=== PATIENT | female | born 1965 | race Caucasian/White ===

== ENCOUNTER → 2018-06-15 08:05 | Outpatient (CLI) | payer OTHER, SELFPAY ==
--- NOTE | 2018-06-14 16:30 | EMB_PTH ---
PATIENT: CUONG RESENDIZ LOC: [facility] U#:[id number] AGE/SX: 60/F ROOM: RE06/15/[address]: Dr. Jose Alfredo Sneed MD : 1965 BED: DIS: SPEC #: [id number] RECD: 06/15/18 08:18 STATUS: TRINI KHUSHBOO #: [id number] LYRIC: 06/14/18 16:[address]: Jose Alfredo Sneed DEPT: SURGICAL PATHOLOGY RECD BY: Stan Valadez Tissues: Endometrium, NOS Procedures: Surgery Specimen Level IV HEADER OPERATION: Endometrial biopsy PRE-OP DIAGNOSIS: Menorrhagia TISSUE SUBMITTED: Endometrial biopsy MICROSCOPIC DIAGNOSIS Endometrial biopsy: Disordered proliferative endometrium. Mild chronic endometritis. SJ:carlos 06/16/18 MICROSCOPIC DESCRIPTION Slides are reviewed. GROSS DESCRIPTION Received in fixative is one container labeled with the patient's name and designated EM biopsy. The specimen consists of multiple fragments of hemorrhagic soft tissue that in aggregate measure 3 x 2.5 x 0.2 cm. The specimen is totally submitted in one cassette. / SJ:carlos 06/15/18 TC:5 CPT: 49635
[2018-06-23 13:32] LABS: HPV APTIMA, High Risk Negative (Negative)
[2018-07-09 15:31] LABS: HPV Reflexed? YES, CHARGE PATIENT
== END ==
PROVIDERS: Visit Provider Obstetrics & Gynecology
DX: Z12.4 Encounter for screening for malignant neoplasm of cervix (principal)
CPT/HCPCS: 87624; 88175; 88305; G0145

== ENCOUNTER → 2018-07-10 16:41 | Outpatient (CLI) | payer OTHER, SELFPAY ==
[2018-07-10 17:39] LABS: Follicle Stimulating Hormone 2.9 mIU/mL
[2018-07-12 11:31] LABS: Cancer Antigen 125 37.8 U/mL (0.0-38.1)
== END ==
PROVIDERS: Visit Provider Obstetrics & Gynecology
DX: N83.209 Unspecified ovarian cyst, unspecified side (principal); N92.0 Excessive and frequent menstruation with regular cycle
CPT/HCPCS: 36415; 83001; 86304

== ENCOUNTER 2018-08-10 05:17 | Day surgery (SDC) | payer OTHER, SELFPAY ==
[2018-07-27 12:26] VITALS: BP 119/73; PULSE 48; RESP 16; TEMP 36.7; O2SAT 98; BMI 36.4
[2018-07-27 13:22] LABS: Hematocrit 37.7 % (37-47); Hemoglobin 11.8 g/dl (12.0-15.0); Mean Corp Hgb Conc 31.3 g/gl (32-36); Mean Corpuscular Hgb 28.4 pg (27.0-32.0); Mean Corpuscular Volume 90.8 fL (81-99); Mean Platelet Vol. 9.9 fl (6.2-12.0); Platelet Count 376 K/mm3 (150-450); RBC Distribution Width CV 13.1 % (11.6-14.6); RBC Distribution Width SD 42.6 fl (35.1-43.9); Red Blood Count 4.15 M/mm3 (4.2-5.4); White Blood Count 5.8 K/mm3 (4.4-11.0)
[2018-07-27 13:23] LABS: Scan Indicated on CBC? Y/N NO
[2018-07-27 13:25] LABS: Prothrombin Time (Protime)PT. 12.8 SECONDS (11.7-14.9)
[2018-07-27 13:26] LABS: Partial Thromboplast Time 26.4 Seconds (24.1-36.2)
[2018-07-27 13:43] LABS: ALB/GLOB Ratio 0.8 RATIO (0.9-2.4); AST(SGOT) 38 U/L (15-37); Alanine Aminotransfer ALT/SGPT 41 U/L (13-56); Albumin, Serum 3.5 g/dL (3.2-5.0); Alkaline Phosphatase 171 U/L (45-117); Anion Gap 6 (5-15); BUN 16 mg/dL (7-18); BUN/Creat Ratio 13.6 RATIO (10-20); Calcium,Total 8.7 mg/dL (8.5-10.1); Chloride 104 mmol/L (98-107); Creatinine, Serum 1.18 mg/dL (0.55-1.02); EST Glomerular Filtration Rate 51 mL/min (>60); Est Glom Filt Rate - Afr Amer 62 mL/min (>60); Estimated Creatinine Clearance 42.56 ml/min; Globulin 4.6 g/dL (2.2-4.2); Glucose 86 mg/dL (74-106); Potassium 4.7 mmol/L (3.5-5.1); Protein, Total 8.1 g/dL (6.4-8.2); Sodium Level 136 mmol/L (136-145)
--- NOTE | 2018-08-09 20:06 | PCM.HP.BLA ---
History and Physical Date of Admission: 08/10/18 Surgical History and Physical Alvina Parker, a 53 year old female 3 0 2 0 3, presents for LABH/LSO on August 10, 2018 at 11:15. -- Complex Left Ovarian Cyst; Menorrhagia; Mildly Elevated CA-125 -- Alvina has been having occassional left lower abdominal pain. She has a hx of ovarian cysts. Pain is not attributable to any given point in her cycle. Pt has been bleeding since 06-08-18 with clots. Heavy bleeding which began weeks ago. Alvina claims it started suddenly It occurs all the time. It is located in the vagina. Severity is moderate and not improving; Septated simple left ovary about 4 cm.; Additional comments are: CA-125 =37.; Additional comments are: EMBx benign. MEDICATIONS HISTORY: Patient is also takin. amlodipine 5 mg tablet, daily 2. metoprolol tartrate 50 mg tablet, One pill by mouth twice a day ALLERGIES: NKA, Lisinopril, Anxiety, Prednisone and Anxiety Infections - chicken pox- as a child Illnesses - CP, HTN, Irreg Heart Rhythn, Asthma Accidents - no injuries of consequence Hospitalizations - Childbirth and see surgery Heart Cath, anemia; Review of Systems: GENERAL - Denies fever, or chills SKIN - Denies skin changes EYES - Denies visual changes EARS - Denies difficulty hearing NOSE - Denies nasal congestion or bleeding MOUTH - Denies sore throat or difficulty swallowing NECK - Denies pain or swelling RESPIRATORY - Denies shortness of breath or wheezing CARDIOVASCULAR - Denies palpitations or chest pain GASTROINTESTINAL - Denies nausea, vomiting, diarrhea, constipation GENITOURINARY - Denies dysuria, frequency of urination, incontinence of urine MUSCULOSKELETAL - Denies joint or muscle pain NEUROLOGICAL - Denies localized numbness or weakness PSYCHIATRIC - Denies depression or anxiety ENDOCRINE - Denies heat or cold intolerance, weight loss or gain HEMATO-IMMUNOLOGIC - Denies excesive bleeding with cuts SOCIAL HISTORY: Alcohol Use - denies drinking Smoking - used to smoke but quit Diet - no special diet Lifestyle - moderate stress lifestyle and Exercise - minimal Seat Belt Use - always Employer - [employer] Job Description - [employer] Part-time Illicit Drug Use - denies use of street drugs Sexual Activity - and [employer]IVE [employer] Hours Worked - 15 hrs wk Spouse-Sig Other Name - Levon Spouse-Sig Other Occupation - [employer] Children Name(s) - Kristina Sherman Jonathan Control - Prior Tubal FAMILY HISTORY: Family history of Diabetes, Heart Dz. MENSTRUAL HISTORY: LMP Known?- DefiniteAmount/Duration - 14 days, Regularity - Regular, Frequency - monthly days, LMP - 07/04/18, Age Onset Menarche - 15 PAST PREGNANCIES: Total Pregnancies - 5; Full Term Pregnancies - 3; Premature - 0; Abortions, Induced - 0; Abortions, Spontaneous - 2; Ectopics - 0; Multiple Births - 0; Living Children - 3 SURGICAL HISTORY: 1. 2002 Cholecystectomy ; Praneeth Callahan - 2. Heart Cath ; - 3. RSO 07/2005- Dr Sneed ; - 4. Hernia repairs x 2 ; - 5. Heart Valve Repair @ 5yo ; - 6. BTO ; - PHYSICAL EXAMINATION BP- 112/72 Sitting, Right arm, regular cuff Weight- 192.00 lbs Height- 61.00 inch BMI:36.35 CONSTITUTIONAL - NAD, well nourished, and well developed ABDOMEN - Without hepatosplenomegaly, distention, masses, rebound, or guarding; normal bowel sounds; no hernias and Midline incision scar present symphasis to 4 cm above umbilicus NEUROLOGICAL - Cranial nerves II-XII grossly intact PSYCHIATRIC - A and O to time, place, person, mood and affect DETAILED PELVIC EXAM External Genitial Vagina - non-tender without lesions Urethra/Urethral Meatus - non-tender Bladder - non-tender Vagina - vaginal rodriguez are pink and moist without loss of rugae and no evidence of atropy and blood in vagina Cervix - without cervical motion tenderness and has normal size and features without evident lesions and cervix pulls to within 2-3 cm of introitus with tenaculum Uterus - multiparous size 6 cm & wt 75-125 g Adnexa - clear without massess or tenderness ASSESSMENT: 1. Ovarian Cyst Nos 2. Menorrhagia PLAN BY DIAGNOSIS: 1. Menorrhagia and Ovarian Cyst Nos EM OK. CA-125 in very high normal range and FSH shows she is not menopausal. Discussed expectant option vs proceeding with surgery and pt desires proceeding with LAVH/LSO. Discussed RBAs and all questions answered. She has arch aneurysm. Many surgeries in past without difficulty.
[2018-08-10] VITALS (12 sets, daily range): BP systolic 91–125; BP diastolic 62–73; PULSE 45–97; RESP 16–18; TEMP 35.9–37.3; O2SAT 96–100; BMI 36.4; BMI 38.7
--- NOTE | 2018-08-10 | HYST_PTH ---
PATIENT: CUONG RESENDIZ LOC: [facility] U#:[id number] AGE/SX: 53/F ROOM: RE08/10/[address]: Dr. Jose Alfredo Sneed MD : 1965 BED: DIS: 08/11/2018 SPEC #: [id number] RECD: 08/10/18 10:52 STATUS: TRINI CUELLO #: [id number] LYRIC: 08/10/18 00:[address]: Jose Alfredo Sneed DEPT: SURGICAL PATHOLOGY RECD BY: Stan Valadez ENTERED: 08/10/18 10:52 SP TYPE: HYSTERECT OTHR DR: Dr. Tree Limon MD Tissues: Uterus, NOS Procedures: Surgery Specimen Level V HEADER OPERATION: Hysterectomy, lap-assisted vaginal, LSO, ERAS PRE-OP DIAGNOSIS: Ovarian cyst, menorrhagia TISSUE SUBMITTED: Uterus, cervix, left fallopian tube and ovary MICROSCOPIC DIAGNOSIS Uterus, cervix, left fallopian tube and ovary and portion right fallopian tube: Cervix - mild chronic cystic cervicitis. Endometrium - proliferative endometrium with focal cystic changes. Myometrium - adenomyosis. Left ovary - physiologic follicular cyst. 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 Left paratubal cyst. SJ:carlos 08/11/18 MICROSCOPIC DESCRIPTION Slides are reviewed. GROSS DESCRIPTION Received in fixative is one container labeled with the patient's name and designated uterus. The specimen consists of a uterus with attached cervix measuring 10.5 x 6 x 5 cm and weighing 119 gm. The ectocervix is unremarkable and the cervical os is oval in contour. Attached is a portion of right fallopian tube that measures 3.5 cm in length and 0.6 cm in average diameter. The endocervical canal measures 3 cm in length and is grossly unremarkable. The triangular endometrial cavity measures 4.5 x 3.5 cm. The endometrium is light garcia, velvety and glistening and measures up to 0.2 cm in thickness. The myometrium measures 2 cm in average thickness and is free of mass lesions. Present free in the container is a cystic ovary measuring 4 x 3.8 x 3 cm and weighing 22 gm. The external surface is smooth and glistening. The cyst contains clear fluid. The inner cyst wall is also smooth and glistening. No papillary projections or excrescences are seen. The cyst wall ranges in thickness from 0.1 to 0.2 cm. Also present free in the container is a portion of fallopian tube in two fragments measuring 5 cm in length and 0.5 cm in average diameter. The fimbriated end appears normal in appearance. Two paratubal cysts containing clear fluid are present and range in size from 0.8 to 1 cm in greatest dimension. Power Bender Operator sections are submitted in ten cassettes as follows: 1 - anterior cervix, 2 - posterior cervix, 3 & 4 - anterior uterine wall, 5 & 6 - posterior uterine wall, 7 & 8 - left cystic ovary, 9 - right fallopian tube, 10 - left fallopian tube and paratubal cysts. / AM:carlos 08/10/18 TC:5 CPT: 97493
[2018-08-10] MEDS: Gabapentin 600 MG Tablet PO (05:43)
[2018-08-10] MEDS: Acetaminophen 500 MG Tablet 1000 MG PO (05:43)
[2018-08-10] MEDS: Scopolamine 1mg/72hr Patch 1 PATCH TRANSDERM. (05:44)
[2018-08-10 07:01] LABS: Bedside Glucose 82 mg/dL (70-110)
[2018-08-10] MEDS: Ropivacaine 0.5% 30 ML Vial (08:00)
--- NOTE | 2018-08-10 09:27 | PCM.OPRPT ---
Report of Operation Date of Procedure: 08/10/18 Pre-Operative Diagnosis: Left Ovarian Cyst and Pain, Menorrhagia, Elevated CA 125 Post-Operative Diagnosis: Left Ovarian Cyst and Pain, Menorrhagia, Elevated CA 125 Surgery/Procedure Performed:: Laparoscopic-Assisted Vaginal Hysterectomy, Left Salpingo-Oophorectomy Description of Surgical Findings:: 8 cm uterus with cervix that protruded to within 2 cm of the introitus. 5 cm cystic left ovary. Absent right tube and ovary. Adhesions of omentum to right anterior abdominal wall. maintenance chief: Ana Maria Ames maintenance chief: Maria Isabel Sandhu Type of Anesthesia:: General Anesthesiologist: Alonzo Sneed Specimen's removed: Uterus and left fallopian tube and ovary Drains: Prieto to straight drain Estimated Blood Loss (mL): 200 cc Fluids Replaced: Crystalloid Description of Procedure: Surgeon: Jose Alfredo Sneed MD, [facility] Indications: This is a 53-year-old who is been having problems with irregular menses. Recent CT scan showed a cystic ovary and this was confirmed on ultrasound. She is also been having some problems with left lower quadrant pain. CA 125 was elevated to approximately 37. Conservative measures have not been helpful. Given this the patient desires that we proceed the above procedure. She has been counseled regarding the risk and indications of this procedure including the possibility of bleeding, infection, and injury to surrounding structures such as bowel bladder. All questions were answered. Procedure: Patient was taken to the operating room where after induction of general anesthesia she was placed in the dorsal lithotomy position and prepped and draped in the usual sterile fashion. A Prieto catheter was placed. Anterior cervix was grasped with a tenaculum and anterior cervix circumscribed with cautery on a setting of 35 W coagulation. Anterior vaginal mucosa was undermined and a 4 x 4 raytec sponge was placed to identify the peritoneal reflection of the bladder intraperitoneally. Conn cannula was placed and attention was turned towards the laparoscopic portion of the procedure. Approximately 20 cc of half percent ropivacaine was injected in the left mid quadrant approximately 10 cm lateral to the umbilicus, suprapubically, and then about 3 cm below the umbilicus. A 5 mm bladeless trocar was introduced in the left port and intraperitoneal placement confirmed. CO2 insufflation was completed and, under direct visualization, a 5 mm bladeless trocar was introduced suprapubically. A 5 mm bladed trocar was introduced 2 cm subumbilical under direct visualization. Bladed trocar was used because of mesh being present. Enseal was used to cauterize the infundibulopelvic ligaments to the level of the round ligament on the left; the Raytec placed in the vagina was visualized. Scissors was used to open the peritoneum and under direct visualization a narrow [place] was placed vaginally; CO2 gas was stopped and attention turned toward the vaginal hysterectomy portion of the procedure. The posterior aspect of the cervix was circumscribed with a knife and posterior peritoneum easily entered. Progressive bites were taken on either side of the uterine cervix and each pedicle ligated with 0 Vicryl suture. Superior pedicles were ligated ?2 with 0 Vicryl suture and sidewall pedicles were examined and oversewn where necessary with [id number] 0 Vicryl suture to achieve hemostasis. Posterior vaginal cuff was oversewn with running locked 0 Vicryl suture. Hemostasis was noted and peritoneum was closed in a pursestring fashion incorporating superior pedicles into the stitch. Vaginal cuff was then closed front to back with interrupted [id number] 0 Vicryl suture. Hemostasis was noted. Attention was turned toward the laparoscopic portion of the procedure. CO2 insufflation was completed and pedicles were examined and noted to be hemostatic. Laparoscopic instruments with as much CO2 gas as possible was removed and skin incisions were closed with interrupted 4-0 Monocryl suture. Steri-Strips and OpSite was placed across the incisions. Patient tolerated the procedure well was taken to recovery room in satisfactory condition; sponge instrument and needle counts were all reportedly correct. Estimated blood loss for the case was 200 cc. Cefotan 2 g IV was given prior to beginning the operative procedure. There were no apparent complications of the surgery. Grafts/Implants Used: None - Complications None - Admit VTE Documentation VTE Present on Admission: Yes VTE Mechan Device Prophylaxis: SCD's VTE Pharm Prophylaxis ordered?: Yes
--- NOTE | 2018-08-10 09:35 | OP.PCM_ITS ---
Report of Operation Date of Procedure: 08/10/18 Pre-Operative Diagnosis: Left Ovarian Cyst and Pain, Menorrhagia, Elevated CA 125 Post-Operative Diagnosis: Left Ovarian Cyst and Pain, Menorrhagia, Elevated CA 125 Surgery/Procedure Performed:: Laparoscopic-Assisted Vaginal Hysterectomy, Left Salpingo-Oophorectomy Description of Surgical Findings:: 8 cm uterus with cervix that protruded to within 2 cm of the introitus. 5 cm cystic left ovary. Absent right tube and ovary. Adhesions of omentum to right anterior abdominal wall. remote sensing technician: Ana Maria Ames remote sensing technician: Maria Isabel Sandhu Type of Anesthesia:: General Anesthesiologist: Alonzo Sneed Specimen's removed: Uterus and left fallopian tube and ovary Drains: Prieto to straight drain Estimated Blood Loss (mL): 200 cc Fluids Replaced: Crystalloid Description of Procedure: Surgeon: Jose Alfredo Sneed MD, [facility] Indications: This is a 53-year-old who is been having problems with irregular menses. Recent CT scan showed a cystic ovary and this was confirmed on ultrasound. She is also been having some problems with left lower quadrant pain. CA 125 was elevated to approximately 37. Conservative measures have not been helpful. Given this the patient desires that we proceed the above procedure. She has been counseled regarding the risk and indications of this procedure including the possibility of bleeding, infection, and injury to surrounding structures such as bowel bladder. All questions were answered. Procedure: Patient was taken to the operating room where after induction of general anesthesia she was placed in the dorsal lithotomy position and prepped and draped in the usual sterile fashion. A Prieto catheter was placed. Anterior cervix was grasped with a tenaculum and anterior cervix circumscribed with cautery on a setting of 35 W coagulation. Anterior vaginal mucosa was undermined and a 4 x 4 raytec sponge was placed to identify the peritoneal reflection of the bladder intraperitoneally. Conn cannula was placed and a ttention was turned towards the laparoscopic portion of the procedure. Approximately 20 cc of half percent ropivacaine was injected in the left mid quadrant approximately 10 cm lateral to the umbilicus, suprapubically, and then about 3 cm below the umbilicus. A 5 mm bladeless trocar was introduced in the left port and intraperitoneal placement confirmed. CO2 insufflation was completed and, under direct visualization, a 5 mm bladeless trocar was introduced suprapubically. A 5 mm bladed trocar was introduced 2 cm subumbilical under direct visualization. Bladed trocar was used because of mesh being present. Enseal was used to cauterize the infundibulopelvic ligaments to the level of the round ligament on the left; the Raytec placed in the vagina was visualized. Scissors was used to open the peritoneum and under direct visualization a narrow [place] was placed vaginally; CO2 gas was stopped and attention turned toward the vaginal hysterectomy portion of the procedure. The posterior aspect of the cervix was circumscribed with a knife and posterior peritoneum easily entered. Progressive bites were taken on either side of the uterine cervix and each pedicle ligated with 0 Vicryl suture. Superior pedicles were ligated ?2 with 0 Vicryl suture and sidewall pedicles were examined and oversewn where necessary with [id number] 0 Vicryl suture to achieve hemostasis. Posterior vaginal cuff was oversewn with running locked 0 Vicryl suture. Hemostasis was noted and peritoneum was closed in a pursestring fashion incorporating superior pedicles into the stitch. Vaginal cuff was then closed front to back with interrupted [id number] 0 Vicryl suture. Hemostasis was noted. Attention was turned toward the laparoscopic portion of the procedure. CO2 insufflation was completed and pedicles were examined and noted to be hemostatic. Laparoscopic instruments with as much CO2 gas as possible was removed and skin incisions were closed with interrupted 4-0 Monocryl suture. Steri-Strips and OpSite was placed across the incisions. Patient tolerated the procedure well was taken to recovery room in satisfactory condition; sponge instrument and needle counts were all reportedly correct. Estimated blood loss for the case was 200 cc. Cefotan 2 g IV was given prior to beginning the operative procedure. There were no apparent complications of the surgery. Grafts/Implants Used: None - Complications None - Admit VTE Documentation VTE Present on Admission: Yes VTE Mechan Device Prophylaxis: SCD's VTE Pharm Prophylaxis ordered?: Yes
[2018-08-10] MEDS: Ondansetron 4 MG/2 ML Vial IV (09:37)
--- NOTE | 2018-08-10 09:37 | DCINST_ITS ---
Discharge Diet: No Restrictions Discharge Activity: Return to Normal Activity, May Not Drive - while taking narcotic pain medications., May Shower May resume sexual activity in: 6-8 weeks Call your doctor if your incision/area has: Continuous Slow Oozing, Sudden Increased Bleeding, Increased Pain/ Swelling, Increased Redness, Foul Smelling Discharge Call your doctor if you observe: Fever of 101 or Higher, Inability to urinate, Inability to have a bowel movement, Using more than one pad per hour Allergies/Adverse Reactions: Allergies lisinopril Allergy (Verified 07/27/18 12:19) Other TONGUE AND LIPS NUMB prednisone Allergy (Verified 07/27/18 12:20) Other ANXIETY ATTACK Medications to take at Discharge Amlodipine [Norvasc] 5 mg PO DAILY 07/27/18 Esomeprazole Mag Trihydrate [Nexium] 20 mg PO PRN PRN 07/27/18 Metoprolol Tartrate [Lopressor (Beta Michelle)] 50 mg PO BID 07/27/18 Docusate Sodium [Colace] 100 mg PO BID PRN PRN #60 cap 08/10/18 Oxycodone [Oxyir] 5 mg PO Q6H PRN PRN 7 Days #20 tab 08/10/18 The following prescriptions were given: Oxycodone [Oxyir] 5 mg PO Q6H PRN PRN 7 Days #20 tab PRN Reason: Severe Pain (-06/21) Docusate Sodium [Colace] 100 mg PO BID PRN PRN #60 cap PRN Reason: Constipation Primary Care Physician: Tree Limon MD [Primary Care Provider] - Test Results: Test results from this visit will be discussed in further detail at your follow- up appointment, if applicable. Please Follow Up With: Jose Alfredo Sneed MD When: 2-3 weeks
[2018-08-10] MEDS: Dextrose 5%-Lactated Ringers 1,000 ML 150 ML IV ×2 (10:39→17:25)
[2018-08-10] MEDS: Ketorolac 30 MG/ML Syringe IV ×2 (13:05→17:25)
[2018-08-10] MEDS: Estrogens,Conj. 0.625 MG Tablet PO (14:15)
[2018-08-10] MEDS: Enoxaparin 30 MG/0.3 ML Syringe SC (17:25)
[2018-08-11] MEDS: Ketorolac 30 MG/ML Syringe IV (00:06)
[2018-08-11] MEDS: 0.9% NaCl Peripheral Flush Adult/Peds IV (00:06)
[2018-08-11 02:55] VITALS: BP 118/71; PULSE 73; RESP 18; TEMP 36.6; O2SAT 99
[2018-08-11] MEDS: Ketorolac 10 MG Tablet PO (05:46)
[2018-08-11 06:27] LABS: Hematocrit 33.9 % (37-47); Hemoglobin 10.5 g/dl (12.0-15.0); Mean Corpuscular Hgb 27.9 pg (27.0-32.0); Mean Corpuscular Volume 90.2 fL (81-99); Mean Platelet Vol. 9.4 fl (6.2-12.0); Platelet Count 308 K/mm3 (150-450); RBC Distribution Width CV 13.6 % (11.6-14.6); RBC Distribution Width SD 44.6 fl (35.1-43.9); Red Blood Count 3.76 M/mm3 (4.2-5.4); White Blood Count 8.5 K/mm3 (4.4-11.0)
[2018-08-11 06:34] LABS: Scan Indicated on CBC? Y/N NO
[2018-08-11 06:39] LABS: Creatinine, Serum 1.52 mg/dL (0.55-1.02); EST Glomerular Filtration Rate 38 mL/min (>60); Est Glom Filt Rate - Afr Amer 46 mL/min (>60); Estimated Creatinine Clearance 33.04 ml/min
[2018-08-11 07:43] VITALS: BP 109/68; PULSE 77; RESP 18; TEMP 36.8; O2SAT 97
--- NOTE | 2018-08-11 08:02 | PCM.PN.OB ---
Subjective: Patient without complaints. Pain well controlled. Minimal vaginal bleeding. Tolerating diet well. Positive flatus. Ready to go home. - Physical Exam Vital Signs Temp Pulse Resp BP Pulse Ox 98.3 F 77 18 109/68 97 08/11/18 07:43 08/11/18 07:43 08/11/18 07:43 08/11/18 07:43 08/11/18 07:43 Oxygen Flow Rate (L/min) 6 Oxygen Delivery Method Room Air Weight: 205 lb Body Mass Index (BMI) 38.7 Intake and Output for Last 24 Hours 08/09/18 08/10/18 08/11/18 23:59 23:59 23:59 Intake Total 1673 / 1673 2138 / 2138 Output Total 1415 / 1415 1750 / 1750 Balance 258 / 258 388 / 388 Laboratory Tests Past 24 Hrs 08/11/18 08/11/18 06:02 06:02 WBC 8.5 RBC 3.76 L Hgb 10.5 L Hct 33.9 L MCV 90.2 MCH 27.9 MCHC 31.0 L RDW 13.6 RDW Differential 44.6 H Plt Count 308 MPV 9.4 Creatinine 1.52 H Estim Creat Clear Calc 33.04 Est GFR (MDRD) Af Amer 46 L Est GFR (MDRD) Non-Af 38 L Wounds are clean, dry, intact. Good urine output. Hemoglobin and creatinine okay. Toradol discontinued. Medical Necessity - Tobacco Use Smoking Status: Never smoker Assessment/Plan Doing well postoperative day #1 status post laparoscopic assisted vaginal hysterectomy and left salpingo-oophorectomy. Will release to home with routine instructions.
[2018-08-11 08:43] VITALS: BP 109/68; PULSE 77
[2018-08-11] MEDS: Estrogens,Conj. 0.625 MG Tablet PO (08:43)
[2018-08-11] MEDS: Metoprolol Tartrate 50 MG Tablet PO (08:43)
[2018-08-11] MEDS: amLODIPine 5 MG Tablet PO (08:43)
[2018-08-11 09:48] VITALS: BP 109/68; PULSE 77; RESP 18; TEMP 36.8; O2SAT 97
--- OUTSIDE RECORDS SUMMARY | 2018-10-05 05:59 | XMS RPT_ITS ---
:1965 Author Organization OHIP Support Name Relationship Address Phone ASTRID OWEN Unavailable [address] + [place] [address] WESTHOLSCH Unavailable [id number] + [place] [address] WESTHOLSCH Unavailable [address] + [place] [address] OWEN RESENDIZ Unavailable [address] Unavailable [place], [place] [phone] DOBBS, SUSANNE Unavailable [address] + [place], [place] [phone] NOT GIVEN Unavailable Unavailable Unavailable JOEPO Unavailable [address] + [place] [address] YE DOBBS Unavailable [address] [place] [address] OWEN RESENDIZ Unavailable [address] Unavailable [place], [place] [phone] DOBBS, SUSANNE Unavailable [address] + [place], [place] [phone] NOT GIVEN Unavailable Unavailable Unavailable OWEN RESENDIZ Unavailable [address] Unavailable [place] [phone] DOBBS, SUSANNE Unavailable [address] + [place], [place] [phone] NOT GIVEN Unavailable Unavailable Unavailable OWEN RESENDIZ Unavailable [address] Unavailable [place] [id number] DOBBS, SUSANNE Unavailable [address] + [place], [place] [phone] NOT GIVEN Unavailable Unavailable Unavailable OWEN RESENDIZ Unavailable [address] Unavailable [place] [phone] DOBBS, SUSANNE Unavailable [address] + [place], [place] [phone] NOT GIVEN Unavailable Unavailable Unavailable Care Team Providers Name Role Phone JOSE RAMÍREZ Admitting Unavailable MEAGHAN, JOSE L Attending Unavailable MEAGHAN, JOSE L Primary Care Unavailable JOSE RAMÍREZ L Admitting Unavailable JOSE RAMÍREZ L Attending Unavailable MEAGHANJOSE L Primary Care Unavailable [place], [place] Consulting Unavailable PROVIDER, UNKNOWN Consulting Unavailable ESE VIRGEN DO Admitting Unavailable ESE VIRGEN DO Attending Unavailable DIDESE ACUNA DO Primary Care Unavailable [place], SONA Consulting Unavailable [place], SONA Referring Unavailable PROVIDER, UNKNOWN Consulting Unavailable ESE VIRGEN DO Admitting Unavailable ESE VIRGEN DO Attending Unavailable DIDESE ACUNA DO Primary Care Unavailable [place], SONA Consulting Unavailable [place], SONA Referring Unavailable PROVIDER, UNKNOWN Consulting Unavailable JOSE RAMÍREZ L Admitting Unavailable JOSE RAMÍREZ L Attending Unavailable JOSE RAMÍREZ L Primary Care Unavailable [place], SONA Consulting Unavailable PROVIDER, UNKNOWN Consulting Unavailable Graeme Cisneros Attending Unavailable Nedra, Graeme Attending Unavailable Graeme Cisneros Attending Unavailable Tree Limon Primary Care Unavailable Graeme Cisneros Referring Unavailable PROBLEMS PROBLEMS DATE TYPE CONDITION / CODE ATTENDING STATUS SOURCE 08/11/2018 Unknown G89.18 - Other acute Graeme Cisneros postprocedural pain Community / G89.18(ICD-10) Hospital Repository 07/10/2018 Unknown N83.209 - Graeme Cisneros Active [facility] Unspecified ovarian Community cyst, unspecified Hospital side / Repository N83.209(ICD-10) 07/10/2018 Unknown N92.0 - Excessive Graeme Cisneros and frequent [facility] menstruation with [facility] regular cycle / Repository N92.0(ICD-10) PROCEDURES PROCEDURES No Procedure Records FoundRESULTS RESULTS CBC-COMPLETE BLOOD CNT Collected: 08/11/2018 Status: F Source: [place] NO DIFF 6:02 AM [facility] REPOSITORY TYPE CODE TESTS RESULT OUT OF RANGE REFERENCE UNITS LAB L100.1000 4.4-11.0 K/mm3 Normal WBC 8.5 LAB L100.1200 4.2-5.4 M/mm3 Low RBC 3.76 LAB L100.1300 12.0-15.0 g/dl Low HGB 10.5 LAB L100.1400 37-47 % Low HCT 33.9 LAB L100.1500 81-99 fL Normal MCV 90.2 LAB L100.1600 27.0-32.0 pg Normal MCH 27.9 LAB L100.1700 32-36 g/gl Low MCHC 31.0 LAB L100.1810 11.6-14.6 % Normal RDW CV 13.6 LAB L100.1820 35.1-43.9 fl High RDW SD 44.6 LAB L100.1900 150-450 K/mm3 Normal PLT 308 LAB L100.2000 6.2-12.0 fl Normal MPV 9.4 Performed By: #### L100.0500 #### [facility] [address] [place], [address] SERUM CREATININE AND Collected: 08/11/2018 Status: F Source: [place] GFR 6:[address] [facility] REPOSITORY TYPE CODE TESTS RESULT OUT OF RANGE REFERENCE UNITS LAB L501.1100 0.55-1.02 mg/dL High 1.52 CREAT,SERUM Result Comment: The validity of the calculated GFR AND GFRAA in patients over 70 years has not been determined. Clinical correlation is essential. LAB L501.1110 >60 mL/min Low EST GFR 38 Result Comment: Non- GFR Calc LAB L501.1115 >60 mL/min Low EST GFR - AA 46 Result Comment: GFR Calc LAB L501.1255 ml/min Normal Estimated CRCL 33.04 Performed By: #### L501.1105 #### [facility] [address] [place], [address] DISCHARGE INSTRUCTION Observed: 08/10/2018 Status: F Source: [place] 9:[address] [facility] REPOSITORY [facility] Medical Records Department [address] [place] [address] Instructions for Home/Discharge Instructions 08/10/18 0936 MR#: [id number] Acct: [id number] Name: CUONG RESENDIZ Rep #: [id number] : 1965 53 From: Graeme Cisneros MD PCP: Tree Limon MD Status: REG [facility] Discharge Diet: No Restrictions Discharge Activity: Return to Normal Activity, May Not Drive - while taking narcotic pain medications., May Shower May resume sexual activity in: 6-8 weeks Call your doctor if your incision/area has: Continuous Slow Oozing, Sudden Increased Bleeding, Increased Pain/ Swelling, Increased Redness, Foul Smelling Discharge Call your doctor if you observe: Fever of 101 or Higher, Inability to urinate, Inability to have a bowel movement, Using more than one pad per hour Allergies/Adverse Reactions: Allergies lisinopril Allergy (Verified 07/27/18 12:19) Other TONGUE AND LIPS NUMB prednisone Allergy (Verified 07/27/18 12:20) Other ANXIETY ATTACK Medications to take at Discharge Amlodipine [Norvasc] 5 mg PO DAILY 07/27/18 Esomeprazole Mag Trihydrate [Nexium] 20 mg PO PRN PRN 07/27/18 Metoprolol Tartrate [Lopressor (Beta Michelle)] 50 mg PO BID 07/27/18 Docusate Sodium [Colace] 100 mg PO BID PRN PRN #60 cap 08/10/18 Oxycodone [Oxyir] 5 mg PO Q6H PRN PRN 7 Days #20 tab 08/10/18 The following prescriptions were given: Oxycodone [Oxyir] 5 mg PO Q6H PRN PRN 7 Days #20 tab PRN Reason: Severe Pain (-06/21) Docusate Sodium [Colace] 100 mg PO BID PRN PRN #60 cap PRN Reason: Constipation Primary Care Physician: Tree Limon MD [Primary Care Provider] - Test Results: Test results from this visit will be discussed in further detail at your follow-up appointment, if applicable. Please Follow Up With: Graeme Cisneros MD When: 2-3 weeks 08/10/1837 <Electronically signed by Graeme Cisneros MD> Date Graeme Cisneros MD CC: Tree Limon MD OPERATIVE REPORT Observed: 08/10/2018 Status: F Source: [place] 9:[address] [facility] REPOSITORY [facility] Medical Records Department [address] [place] [address] Operative Report 08/10/18926 MR#: [id number] Acct: [id number] Name: CUONG RESENDIZ Rep #: [id number] : 1965 53 From: Graeme Cisneros MD PCP: Tree Limon MD Status: REG [facility] Y Location: [place] [address] Report of Operation Date of Procedure: 08/10/18 Pre-Operative Diagnosis: Left Ovarian Cyst and Pain, Menorrhagia, Elevated CA 125 Post-Operative Diagnosis: Left Ovarian Cyst and Pain, Menorrhagia, Elevated CA 125 Surgery/Procedure Performed:: Laparoscopic-Assisted Vaginal Hysterectomy, Left Salpingo-Oophorectomy Description of Surgical Findings:: 8 cm uterus with cervix that protruded to within 2 cm of the introitus. 5 cm cystic left ovary. Absent right tube and ovary. Adhesions of omentum to right anterior abdominal wall. bundle packer: Ana Maria Ames bundle packer: Maria Isabel Sandhu Type of Anesthesia:: General Anesthesiologist: Alonzo Cisneros Specimen's removed: Uterus and left fallopian tube and ovary Drains: Prieto to straight drain Estimated Blood Loss (mL): 200 cc Fluids Replaced: Crystalloid Description of Procedure: Surgeon: Graeme Cisneros MD, [facility] OG Indications: This is a 53-year-old who is been having problems with irregular menses. Recent CT scan showed a cystic ovary and this was confirmed on ultrasound. She is also been having some problems with left lower quadrant pain. CA 125 was elevated to approximately 37. Conservative measures have not been helpful. Given this the patient desires that we proceed the above procedure. She has been counseled regarding the risk and indications of this procedure including the possibility of bleeding, infection, and injury to surrounding structures such as bowel bladder. All questions were answered. Procedure: Patient was taken to the operating room where after induction of general anesthesia she was placed in the dorsal lithotomy position and prepped and draped in the usual sterile fashion. A Prieto catheter was placed. Anterior cervix was grasped with a tenaculum and anterior cervix circumscribed with cautery on a setting of 35 W coagulation. Anterior vaginal mucosa was undermined and a 4 x 4 raytec sponge was placed to identify the peritoneal reflection of the bladder intraperitoneally. Conn cannula was placed and attention was turned towards the laparoscopic portion of the procedure. Approximately 20 cc of half percent ropivacaine was injected in the left mid quadrant approximately 10 cm lateral to the umbilicus, suprapubically, and then about 3 cm below the umbilicus. A 5 mm bladeless trocar was introduced in the left port and intraperitoneal placement confirmed. CO2 insufflation was completed and, under direct visualization, a 5 mm bladeless trocar was introduced suprapubically. A 5 mm bladed trocar was introduced 2 cm subumbilical under direct visualization. Bladed trocar was used because of mesh being present. Enseal was used to cauterize the infundibulopelvic ligaments to the level of the round ligament on the left; the Raytec placed in the vagina was visualized. Scissors was used to open the peritoneum and under direct visualization a narrow Gypsy was placed vaginally; CO2 gas was stopped and attention turned toward the vaginal hysterectomy portion of the procedure. The posterior aspect of the cervix was circumscribed with a knife and posterior peritoneum easily entered. Progressive bites were taken on either side of the uterine cervix and each pedicle ligated with 0 Vicryl suture. Superior pedicles were ligated 2 with 0 Vicryl suture and sidewall pedicles were examined and oversewn where necessary with vizrry-lg-[id number] 0 Vicryl suture to achieve hemostasis. Posterior vaginal cuff was oversewn with running locked 0 Vicryl suture. Hemostasis was noted and peritoneum was closed in a pursestring fashion incorporating superior pedicles into the stitch. Vaginal cuff was then closed front to back with interrupted [id number] 0 Vicryl suture. Hemostasis was noted. Attention was turned toward the laparoscopic portion of the procedure. CO2 insufflation was completed and pedicles were examined and noted to be hemostatic. Laparoscopic instruments with as much CO2 gas as possible was removed and skin incisions were closed with interrupted 4-0 Monocryl suture. Steri-Strips and OpSite was placed across the incisions. Patient tolerated the procedure well was taken to recovery room in satisfactory condition; sponge instrument and needle counts were all reportedly correct. Estimated blood loss for the case was 200 cc. Cefotan 2 g IV was given prior to beginning the operative procedure. There were no apparent complications of the surgery. Grafts/Implants Used: None - Complications None - Admit VTE Documentation VTE Present on Admission: Yes VTE Mechan Device Prophylaxis: SCD's VTE Pharm Prophylaxis ordered?: Yes 08/10/18 0936 <Electronically signed by Graeme Cisneros MD> Date Graeme Cisneros MD CC: Graeme Cisneros MD; Tree Limon MD Signed BEDSIDE GLUCOSE Collected: 08/10/2018 Status: F Source: [place] 5:[address] [facility] REPOSITORY TYPE CODE TESTS RESULT OUT OF RANGE REFERENCE UNITS LAB L501.080 70-110 mg/dL Normal BEDSIDE GLU 82 Result Comment: MANAGEMENT OF PATIENT CARE PER NURSING PROTOCOL Performed By: #### L501.080 #### [facility] Point of Care [address] [place] [address] HYSTERECTOMY SPECIMEN Observed: 08/10/2018 Status: F Source: [place] 12:[address] [facility] REPOSITORY Patient: CUONG RESENDIZ : 1965 (53/F) Acct Num: [id number] Phys: Nedra DAWIKNS,Graeme Unit Num: [id number] Loc: [facility] Specimen: [id number] Received: 08/10/181051 Spec Type: HYSTERECT TISSUES 1 TISSUES: Uterus, NOS GROSS DESCRIPTION Received in fixative is one container labeled with the patient's name and designated uterus. The specimen consists of a uterus with attached cervix measuring 10.5 x 6 x 5 cm and weighing 119 gm. The ectocervix is unremarkable and the cervical os is oval in contour. Attached is a portion of right fallopian tube that measures 3.5 cm in length and 0.6 cm in average diameter. The endocervical canal measures 3 cm in length and is grossly unremarkable. The triangular endometrial cavity measures 4.5 x 3.5 cm. The endometrium is light garcia, velvety and glistening and measures up to 0.2 cm in thickness. The myometrium measures 2 cm in average thickness and is free of mass lesions. Present free in the container is a cystic ovary measuring 4 x 3.8 x 3 cm and weighing 22 gm. The external surface is smooth and glistening. The cyst contains clear fluid. The inner cyst wall is also smooth and glistening. No papillary projections or excrescences are seen. The cyst wall ranges in thickness from 0.1 to 0.2 cm. Also present free in the container is a portion of fallopian tube in two fragments measuring 5 cm in length and 0.5 cm in average diameter. The fimbriated end appears normal in appearance. Two paratubal cysts containing clear fluid are present and range in size from 0.8 to 1 cm in greatest dimension. Golf Coach sections are submitted in ten cassettes as follows: 1 - anterior cervix, 2 - posterior cervix, 3 AND 4 - anterior uterine wall, 5 AND 6 - posterior uterine wall, 7 AND 8 - left cystic ovary , 9 - right fallopian tube, 10 - left fallopian tube and paratubal cysts. / AM: carlos 08/10/18 TC:5 CPT: 08097 HEADER OPERATION: Hysterectomy, lap-assisted vaginal, LSO, ERAS PRE-OP DIAGNOSIS: Ovarian cyst, menorrhagia TISSUE SUBMITTED: Uterus, cervix, left fallopian tube and ovary MICROSCOPIC DESCRIPTION Slides are reviewed. MICROSCOPIC DIAGNOSIS Uterus, cervix, left fallopian tube and ovary and portion right fallopian tube: Cervix - mild chronic cystic cervicitis. Endometrium - proliferative endometrium with focal cystic changes. Myometrium - adenomyosis. Left ovary - physiologic follicular cyst. 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 Left paratubal cyst. SJ:carlos 08/11/18 Signed Shawn Mishra 08/11/18 <signature on file> Performed By: #### PHYST #### [facility] [address] [facility] [address] [place], [place], [id number] HISTORY AND PHYSICAL Observed: 08/09/2018 Status: F Source: [place] EXAM 8:[address] [facility] REPOSITORY [facility] Medical Records Department [address] [place] [address] History and Physical 08/09/182005 MR#: [id number] Acct: [id number] Name: CUONG RESENDIZ Rep #: [id number] : 1965 53 From: Graeme Cisneros MD PCP: Tree Limon MD Status: PRE [facility] Y Location: [facility] History and Physical Date of Admission: 08/10/18 Surgical History and Physical Cuong Resendiz, a 53 year old female 3 0 2 0 3, presents for LABH/LSO on August 10, 2018 at 11:15. -- Complex Left Ovarian Cyst; Menorrhagia; Mildly Elevated CA-125 -- Cuong has been having occassional left lower abdominal pain. She has a hx of ovarian cysts. Pain is not attributable to any given point in her cycle. Pt has been bleeding since 06-08-18 with clots. Heavy bleeding which began weeks ago. Cuong claims it started suddenly It occurs all the time. It is located in the vagina. Severity is moderate and not improving; Septated simple left ovary about 4 cm.; Additional comments are: CA-125 =37.; Additional comments are: EMBx benign. MEDICATIONS HISTORY: Patient is also takin. amlodipine 5 mg tablet, daily 2. metoprolol tartrate 50 mg tablet, One pill by mouth twice a day ALLERGIES: NKA, Lisinopril, Anxiety, Prednisone and Anxiety Infections - chicken pox- as a child Illnesses - CP, HTN, Irreg Heart Rhythn, Asthma Accidents - no injuries of consequence Hospitalizations - Childbirth and see surgery Heart Cath, anemia; Review of Systems: GENERAL - Denies fever, or chills SKIN - Denies skin changes EYES - Denies visual changes EARS - Denies difficulty hearing NOSE - Denies nasal congestion or bleeding MOUTH - Denies sore throat or difficulty swallowing NECK - Denies pain or swelling RESPIRATORY - Denies shortness of breath or wheezing CARDIOVASCULAR - Denies palpitations or chest pain GASTROINTESTINAL - Denies nausea, vomiting, diarrhea, constipation GENITOURINARY - Denies dysuria, frequency of urination, incontinence of urine MUSCULOSKELETAL - Denies joint or muscle pain NEUROLOGICAL - Denies localized numbness or weakness PSYCHIATRIC - Denies depression or anxiety ENDOCRINE - Denies heat or cold intolerance, weight loss or gain HEMATO-IMMUNOLOGIC - Denies excesive bleeding with cuts SOCIAL HISTORY: Alcohol Use - denies drinking Smoking - used to smoke but quit Diet - no special diet Lifestyle - moderate stress lifestyle and Exercise - minimal Seat Belt Use - always Employer - [employer] Job Description - [employer] Part-time Illicit Drug Use - denies use of street drugs Sexual Activity - and ACTIVE [employer] Hours Worked - 15 hrs wk Spouse-Sig Other Name - Owen Spouse-Sig Other Occupation - [employer] Children Name(s) - Kristina Sherman Jonathan Control - Prior Tubal FAMILY HISTORY: Family history of Diabetes, Heart Dz. MENSTRUAL HISTORY: LMP Known?- DefiniteAmount/Duration - 14 days, Regularity - Regular, Frequency - monthly days, LMP - 07/04/18, Age Onset Menarche - 15 PAST PREGNANCIES: Total Pregnancies - 5; Full Term Pregnancies - 3; Premature - 0; Abortions, Induced - 0; Abortions, Spontaneous - 2; Ectopics - 0; Multiple Births - 0; Living Children - 3 SURGICAL HISTORY: 1. 2002 Cholecystectomy ; Praneeth Dobbs - 2. Heart Cath ; - 3. RSO 07/2005- Dr Cisneros ; - 4. Hernia repairs x 2 ; - 5. Heart Valve Repair @ 5yo ; - 6. BTO ; - PHYSICAL EXAMINATION BP- 112/72 Sitting, Right arm, regular cuff Weight- 192.00 lbs Height- 61.00 inch BMI:36.35 CONSTITUTIONAL - NAD, well nourished, and well developed ABDOMEN - Without hepatosplenomegaly, distention, masses, rebound, or guarding; normal bowel sounds; no hernias and Midline incision scar present symphasis to 4 cm above umbilicus NEUROLOGICAL - Cranial nerves II-XII grossly intact PSYCHIATRIC - A and O to time, place, person, mood and affect DETAILED PELVIC EXAM External Genitial Vagina - non-tender without lesions Urethra/Urethral Meatus - non-tender Bladder - non-tender Vagina - vaginal rodriguez are pink and moist without loss of rugae and no evidence of atropy and blood in vagina Cervix - without cervical motion tenderness and has normal size and features without evident lesions and cervix pulls to within 2-3 cm of introitus with tenaculum Uterus - multiparous size 6 cm AND wt 75-125 g Adnexa - clear without massess or tenderness ASSESSMENT: 1. Ovarian Cyst Nos 2. Menorrhagia PLAN BY DIAGNOSIS: 1. Menorrhagia and Ovarian Cyst Nos EM OK. CA-125 in very high normal range and FSH shows she is not menopausal. Discussed expectant option vs proceeding with surgery and pt desires proceeding with LAVH/LSO. Discussed RBAs and all questions answered. She has arch aneurysm. Many surgeries in past without difficulty. 08/09/182007 <Electronically signed by Graeme Cisneros MD> Date Graeme Cisneros MD [facility] Signature: Date (if applicable) CC: Graeme Cisneros MD; Tree Limon MD Signed CBC-COMPLETE BLOOD CNT Collected: 07/27/2018 Status: F Source: [place] NO DIFF 12:[address] [facility] REPOSITORY TYPE CODE TESTS RESULT OUT OF RANGE REFERENCE UNITS LAB L100.1000 4.4-11.0 K/mm3 Normal WBC 5.8 LAB L100.1200 4.2-5.4 M/mm3 Low RBC 4.15 LAB L100.1300 12.0-15.0 g/dl Low HGB 11.8 LAB L100.1400 37-47 % Normal HCT 37.7 LAB L100.1500 81-99 fL Normal MCV 90.8 LAB L100.1600 27.0-32.0 pg Normal MCH 28.4 LAB L100.1700 32-36 g/gl Low MCHC 31.3 LAB L100.1810 11.6-14.6 % Normal RDW CV 13.1 LAB L100.1820 35.1-43.9 fl Normal RDW SD 42.6 LAB L100.1900 150-450 K/mm3 Normal PLT 376 LAB L100.2000 6.2-12.0 fl Normal MPV 9.9 Performed By: #### L100.0500 #### [facility] [address] [place], [place], [id number] PROTHROMBIN TIME W/INR Collected: 07/27/2018 Status: F Source: [place] 12:[address] [facility] REPOSITORY TYPE CODE TESTS RESULT OUT OF RANGE REFERENCE UNITS LAB L300.4150 11.7-14.9 SECONDS Normal PROTIME 12.8 LAB L300.4200 Normal INR 1.0 Performed By: #### L300.3900, L300.4310 #### [facility] [address] [place], [place], [address] PARTIAL THROMBOPLAST Collected: 07/27/2018 Status: F Source: [place] TIME 12:[address] [facility] REPOSITORY TYPE CODE TESTS RESULT OUT OF RANGE REFERENCE UNITS LAB L300.4310 24.1-36.2 Seconds Normal PTT 26.4 Performed By: #### L300.3900, L300.4310 #### [facility] [address] [place], [address] COMPREHENSIVE METABOLIC Collected: 07/27/2018 Status: F Source: [place] [facility] 12:[address] [facility] REPOSITORY TYPE CODE TESTS RESULT OUT OF RANGE REFERENCE UNITS LAB L501.0100 74-106 mg/dL Normal GLU 86 Result Comment: Please note revised GLUCOSE reference range effective 2017. LAB L501.1000 7-18 mg/dL Normal BUN 16 LAB L501.1100 0.55-1.02 mg/dL High CREAT,SERUM 1.18 Result Comment: The validity of the calculated GFR AND GFRAA in patients over 70 years has not been determined. Clinical correlation is essential. LAB L501.1110 >60 mL/min Low EST GFR 51 Result Comment: Non- GFR Calc LAB L501.1115 >60 mL/min Normal EST GFR - AA 62 Result Comment: GFR Calc LAB L501.1255 ml/min Normal Estimated CRCL 42.56 LAB L501.1300 10-20 RATIO Normal BUN/CRE 13.6 LAB L501.1500 6.4-8. g/dL Normal 2 T PROT 8.1 LAB L501.1800 3.2-5. g/dL Normal 0 ALB 3.5 LAB L501.1950 2.2-4. g/dL High 2 GLOB 4.6 LAB L501.2000 0.9-2. RATIO Low 4 A/G 0.8 LAB L501.2200 8.5-10 mg/dL Normal .1 CA 8.7 LAB L501.4100 15-37 U/L High AST 38 LAB L501.4305 45-117 U/L High ALK P 171 LAB L501.4405 13-56 U/L Normal ALT 41 LAB L501.4600 0.20-1 mg/dL Normal .00 T BILI 0.30 LAB L501.5300 136-14 mmol/L Normal 5 NA 136 LAB L501.5600 3.5-5. mmol/L Normal 1 K 4.7 LAB L501.5900 98-107 mmol/L Normal CL 104 LAB L501.6100 21.0-3 mmol/L Normal 2.0 CO2 26.0 LAB L501.6200 5-15 Normal GAP 6 Performed By: #### L500.4050 #### [facility] [address] [place], [address] TYPE AND SCREEN Collected: 07/27/2018 Status: F Source: [place] 12:[address] [facility] REPOSITORY Order Comment: Surgery Date: 08/10/18 Hx of Preganancy in last 3 Months No Ever experience any problems with transfusion(s)? N Hx of Transfusion in last 3 Months N Reason for Type AND Screen/Red Cells: SURGERY SURGICAL PROCEDURE: LAVH TYPE CODE TESTS RESULT OUT OF RANGE REFERENCE UNITS LAB B10.0800 B Normal BLOOD TYPE GEL POSITIVE LAB B100.4000 Normal Antibody NEGATIVE Screen Performed By: #### B101.7475 #### [facility] [address] [facility] [place], [address] FOLLICLE STIMULATING Collected: 07/10/2018 Status: F Source: [place] HORMONE 4:[address] [facility] REPOSITORY TYPE CODE TESTS RESULT OUT OF RANGE REFERENCE UNITS LAB L3100.5125 mIU/mL Normal FSH 2.9 Result Comment: NORMAL REFERENCE RANGES FEMALE FOLLICULAR 2.3 - 12.6 mIU/mL MID-CYCLE PEAK 5.2 - 17.5 mIU/mL LUTEAL 1.7 - 12.9 mIU/mL POST-MENOPAUSAL ON MHT 5.9 - 72.8 mIU/mL NOT ON MHT 12.7 - 132.2 mlU/mL MALE 0.7 - 10.8 mIU/mL NEW TEST METHOD AND REFERENCE RANGES JANUARY 31, 2012 Performed By: #### L3100.5125 #### [facility] [address] [place], [address] CANCER ANTIGEN 125 Collected: 07/10/2018 Status: F Source: ANALIA 4:[address] [facility] REPOSITORY TYPE CODE TESTS RESULT OUT OF RANGE REFERENCE UNITS LAB L3100.5000 0.0-38.1 U/mL Normal CA125 37.8 2303 Result Comment: Hue ECLIA methodology Performed at: [address], [place] [id number] Gas Controller: Harry Horton PhD, Phone: [phone] Performed By: #### L3100.5000 #### [facility] (refer to report for specific site) refer to report for address and phone number CV ECHO COMPLETE Observed: 06/21/2018 Status: F Source: [place] [place] 11:36 AM [place] [address] Patient: CUONG RESENDIZ Phone#: : 1965 Age: 53 Gender: F Pt. Type: Out Account: [id number] Location: [facility] Ordering: JOSE RAMÍREZ Exam Date: 06/21/2018/10:05 Family Phys: SONA PATIÑO Charge Code: [id number] Physician: Robertson Order #: [id number] DLP Dose#: PROCEDURE: ECHOCARDIOGRAM WITH DOPPLER AND COLOR FLOW HISTORY: 53-year-old female with hypertension and bicuspid aortic valve INDICATIONS: Bicuspid aortic valve TECHNIQUE: A 2-D ultrasound, color spectral Doppler and M-mode evaluation of the heart and great vessels. PATIENT MEASUREMENTS: Height (in.): 61 BSA: 1.9 Weight (lbs.): 191 BP: 135/83 Vineyard Worker: ELDER M MODE 2D MEASUREMENTS AND CALCULATIONS: LVIDd: 4.83 cm LVIDs: 2.86 cm IVSd: 1.16 cm LVPWd: 1.16 cm LVOT diam: 1.98 cm FS: 40.69 % Ao Root diam: 3.32 cm LA diam: 3.87 cm LA Volume Index: 41.4 mL/m2 LA A4 Area: 21.7 cm2 RA A4 Area: 10.5 cm2 RVDd: 2.94 cm TAPSE: 22 mm DOPPLER MEASUREMENTS AND CALCULATIONS MITRAL MV E MAX margarito: 78.83 cm/s MV A MAX margarito: 95.01 cm/s MV E-A ratio: 0.83 Lat Peak E' Margarito 11 cm/s Continued Report - Page 2 of 3 Patient: CUONG RESENDIZ Phone#: : 1965 Age: 53 Gender: F Pt. Type: Out Account: [id number] Location: 052 Ordering: JOSE RAMÍREZ Exam Date: 06/21/2018/10:05 Family Phys: SONA PATIÑO Charge Code: [id number] Physician: Robertson Order #: [id number] DLP Dose#: Septal Peak E' MARGARITO 9 cm/s Lateral E./E.' 7.4 Medial E./E.' 12.9 AORTIC Ao V2 max: 369.76 cm/s Ao max P.71 mm[Hg] Ao V2 mean: 273.60 cm/s Ao mean P.70 mm[Hg] Ao V2 VTI: 87.71 cm ANALILIA (V Max): 0.69 cm2 ANALILIA (VTI): 0.73 cm2 AI max margarito 340.78 cm/s AI max PG 46.47 mm[Hg] AI dec [place] 164.79 cm/s2 AI PHT 603.43 ms LV V1 Max 82.76 cm/s LV V1 Max PG 2.74 mm[Hg] LV V1 Mean PG 1.87 mm[Hg] LV V1 mean 66.21 cm/s LV V1 VTI 20.71 cm PULMONIC PA V2 Max 124.05 cm/s PA Max PG 6.16 mm[Hg] TRICUSPID TR Max Margarito 245.78 cm/s TR max PG 24.19 mm[Hg] RVSP 27 mmHg 2D/M-MODE AND COLOR FLOW LEFT VENTRICLE: Mild concentric left hypertrophy with normal wall motion and systolic function, ejection fraction 60-65%. Grade 1 diastolic dysfunction. WALL MOTION: 1 - Basal anterior: Normal. 7 - Mid anterior: Normal. 13 - Apical anterior: Normal. 2 - Basal anteroseptal: Normal. 8 - Mid anteroseptal: Normal. 14 - Apical septal: Normal. 3 - Basal inferoseptal: Normal. 9 - Mid inferoseptal: Normal. 15 - Apical inferior: Normal. 4 - Basal inferior: Normal. 10-Mid inferior: Normal. 16 - Apical lateral: Normal. 5 - Basal inferolateral: Normal. 11-Mid inferolateral: Normal. 6 - Basal anterolateral: Normal. 12-Mid anterolateral: Normal. RIGHT VENTRICLE: Normal size and systolic function LEFT ATRIUM: Moderately dilated left atrium Continued Report - Page 3 of 3 Patient: ASTRID CUONG Phone#: : 1965 Age: 53 Gender: F Pt. Type: Out Account: [id number] Location: 052 Ordering: JOSE RAMÍREZ Exam Date: 06/21/2018/10:05 Family Phys: SONA PATIÑO Charge Code: [id number] Physician: Robertson Order #: [id number] DLP Dose#: RIGHT ATRIUM: Normal MITRAL VALVE: Mild mitral annular calcification. Normal leaflet structure and mobility. Mild mitral regurgitation. TRICUSPID VALVE: Normal leaflet structure and mobility. Mild tricuspid regurgitation. AORTIC VALVE: Bicuspid aortic valve with fused right and left coronary cusps. Moderately severe aortic stenosis with peak gradient of 55 mmHg, mean gradient of 33 mmHg, peak transvalvular velocity of 3.7 m/s, calculated aortic valve area by continuity equation is 0.7-0.8 cm. Dimensionless index 0.23 (<0.25 considered severe). Mild eccentric aortic insufficiency PULMONIC VALVE: Normal leaflet structure and mobility. Trace pulmonic insufficiency. AORTIC ROOT: Mildly calcified and dilated proximal ascending aorta measuring 4.3 cm. Mild effacement of the sinotubular junction. IVC/SVC: Normal size and normal respirophasic response PULMONARY VEINS: Normal flow pattern PERICARDIUM: No significant pericardial effusion CONCLUSION: 1. Mild concentric left ventricle hypertrophy with normal wall motion and systolic function, ejection fraction 60- 65%. 2. Normal right ventricle size and systolic function. 3. Moderately dilated left atrium. 4. Bicuspid aortic valve with moderately severe aortic stenosis with peak gradient of 55 mmHg, mean gradient of 33 mmHg, peak transvalvular velocity of 3.7 m/s, calculated aortic valve area by continuity equation is 0.7-0.8 cm. Dimensionless index 0.23 (<0.25 considered severe). Mild eccentric aortic insufficiency. 5. Mild mitral, tricuspid and pulmonic insufficiency 6. Mildly calcified and dilated proximal ascending aorta measuring 4.3 cm. 7. Grade 1 diastolic dysfunction. 8. RVSP estimated to be 27 mmHg. 9. As compared to the last of the report of 03/24/2017, severity of aortic stenosis has progressed. Dictated by: LIYA FRANCO on 06/22/2018 at 10:05 Approved by: LIYA FRANCO on 06/22/2018 at 10:06 ENDOMETRIAL BX/CURETTINGS Observed: 06/14/2018 Status: F Source: ANALIA 4:[address] [facility] REPOSITORY Patient: CUONG RESENDIZ : 1965 (53/F) Acct Num: [id number] Phys: Graeme Cisneros MD Unit Num: [id number] Loc: [facility] Specimen: [id number] Received: 06/15/18817 Spec Type: ENDOM BX/C TISSUES 1 TISSUES: Endometrium, NOS GROSS DESCRIPTION Received in fixative is one container labeled with the patient's name and designated EM biopsy. The specimen consists of multiple fragments of hemorrhagic soft tissue that in aggregate measure 3 x 2.5 x 0.2 cm. The specimen is totally submitted in one cassette. / ANGY:carlos 06/15/18 TC:5 CPT: 08089 HEADER OPERATION: Endometrial biopsy PRE-OP DIAGNOSIS: Menorrhagia TISSUE SUBMITTED: Endometrial biopsy MICROSCOPIC DESCRIPTION Slides are reviewed. MICROSCOPIC DIAGNOSIS Endometrial biopsy: Disordered proliferative endometrium. Mild chronic endometritis. SJ:carlos 06/16/18 Signed Shawn Mishra 06/16/18 <signature on file> Performed By: #### PEMB #### [facility] [place], [address] PAP IG W/REFLEX HR Collected: 06/14/2018 Status: F Source: ANALIA HPV APTIMA 4:[address] [facility] REPOSITORY Order Comment: CYTOLOGY INFORMATION: - CLINICAL INFORMATION: - DATE LMP/MENOPAUSE: 05/29/18 LMP - COLLECTION VIAL: Thin Prep Vial - THIRD MATE SOURCE: CERVICAL/ENDOCERVICAL - COLLECTION TECHNIQUE: BRUSH/SPATULA Specimen Comment: [id number] Specimen Comment: Source.............Cervix;Endocervix Specimen Comment: LMP / Prev Treat...DPX=[id number] Specimen Comment: No. of containers..01 ThinPrep Vial TYPE CODE TESTS RESULT OUT OF REFERENCE UNITS RANGE LAB L7400.0800 . High DIAGN Comment Result Comment: EPITHELIAL CELL ABNORMALITY. ATYPICAL SQUAMOUS CELLS OF UNDETERMINED SIGNIFICANCE. SPECIMEN REPROCESSED FOR INTERPRETATION USING GLACIAL ACETIC ACID (GAA). LAB L7400.0900 . Normal ADEQ Comment Result Comment: Satisfactory for evaluation. Endocervical and/or squamous metaplastic cells (endocervical component) are present. LAB L7400.1300 . High RECOMM Comment Result Comment: Suggest follow up as clinically appropriate. LAB L7400.1400 . Normal PERFORM Comment Result Comment: Roxanna Landers, Bar Tender (ASCP) LAB L7400.1700 . Normal SIGN Comment Result Comment: Jonelle Leary MD, Pathologist LAB L7400.1720 . Normal Path prov. Comment ICD9 Result Comment: R87.610 LAB L7400.2575 . Normal TEST METHOD Comment Result Comment: This liquid based ThinPrep(R) pap test was screened with the use of an image guided system. LAB L7400.2600 . Normal . COMM LAB L7400.2700 . Normal PAPSMR Comment Result Comment: The Pap smear is a screening test designed to aid in the detection of premalignant and malignant conditions of the uterine cervix. It is not a diagnostic procedure and should not be used as the sole means of detecting cervical cancer. Both false-positive and false-negative reports do occur. LAB L7400.2760 Negative Normal HPV APTIMA, Negative HR Result Comment: This test detects fourteen high-risk HPV types (16/18/31/33/35/39/45/ 51/52/56/58/59/66/68) without differentiation. Performed at: - [facility] [id number] Gas Controller: Jolie Lawrence MD, Phone: [phone] Performed at: =G - [facility] [address] [id number] Gas Controller: Jolie Lawrence MD, Phone: [phone] LAB L7400.0304 . Normal HPV RFLX Comment Result Comment: See below for HPV testing results. Performed By: #### L7400.0357 #### [facility] (refer to report for specific site) refer to report for address and phone number EMERGENCY REPORT Observed: 06/13/2018 Status: F Source: [place] [place] 3:21 AM [facility] EMERGENCY ROOM REPORT NAME ACCOUNT SEX AGE ADMIT DISCHARGE PT MED. RECORD# NUMBER DATE DATE TYPE CUONG RESENDIZ [id number] F 53 06/11/18 06/11/18 3 [id number] ROOM: ER DATE OF : 1965 DICTATING PHYSICIAN: Ese Virgen ADDENDUM DIAGNOSTIC DATA: Bloodwork showed a white count of 8, hemoglobin 11.6, hematocrit 34.9, and platelet count 340,000. Sodium is 134, potassium 3.8, chloride 102, CO2 of 26.1, BUN 22, creatinine 1.3, and glucose 111. Alkaline phosphatase is 132, AST 34, ALT 33, total bilirubin 0.2, and anion gap 10. Urinalysis showed too numerous to count red cells with 1-5 white cells, 1+ bacteria, and occasional epithelials. Ultrasound of the pelvis was done tonight. It showed Nabothian cysts. It also showed a 3 cm left ovarian cyst. Negative for mass. Negative for free fluid. Endometrium was 10 mm. EMERGENCY DEPARTMENT COURSE AND TREATMENT: I did discuss the case with Dr. Cisneros, her ELECTRONICS INSTRUCTOR from [place]. I reviewed the bloodwork and ultrasound with him. He will see her in the office this Tuesday as scheduled. I did want to do a vaginal examination when I was here. I talked to the patient, and she basically refused it. She said she feels the bleeding is much less now than it was earlier, and she basically just refused the pelvic examination. I explained this to Dr. Cisneros. He states that is okay. He will see her in the office on Tuesday. The patient was discharged in a clinically stable condition. Nurse's notes reviewed. DIAGNOSES: 1. Left ovarian cyst. 2. Vaginal bleeding. Dictated By: Ese Virgen DO 06/11/18 23:00 JOB #: [id number] Transcribed By: carmela 06/12/18 05:23 Electronically signed by: E-Sign: Dr. Ese Virgen D.O. 06/13/18 03:21 Page 1 of 1 ASTRIDTHOMPSONHA Emergency Room Report EMERGENCY REPORT Observed: 06/13/2018 Status: F Source: [place] [place] 3:21 AM [facility] EMERGENCY ROOM REPORT NAME ACCOUNT SEX AGE ADMIT DISCHARGE PT MED. RECORD# NUMBER DATE DATE TYPE CUONG RESENDIZ [id number] F 53 06/11/18 06/11/18 3 [id number] ROOM: ER DATE OF : 1965 DICTATING PHYSICIAN: Ese Virgen TIME SEEN: 8:20 p.m. HISTORY OF PRESENT ILLNESS: This is a 53-year-old white female complaining of some vaginal bleeding for the past 2 weeks. The bleeding became much heavier tonight, where she ended up getting in the shower and she had this large gush of blood. She put a pad on, and she has gone through 3 pads in the last hour. She was seen here 3 to 4 months ago and diagnosed with a left ovarian cyst. She describes a dull ache in the left lower abdomen, and she is scheduled to see her ELECTRONICS INSTRUCTOR, Dr. Cisneros, on Tuesday. She still does have her periods. Her last menstrual period was about 2 weeks ago. She denies any weakness. She denies any dizziness. She does take iron tablets for chronic anemia. PAST MEDICAL HISTORY: Hypertension and mitral valve prolapse. 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 It has been deemed nonsurgical at this point, and she does get a yearly echocardiogram and is scheduled for that on June 21. She does see Dr. Ramírez, her transit bus driver, on June 28, 2018. PAST SURGICAL HISTORY: Cholecystectomy, hernia repair x3, and tubal ligation. She has had a right salpingo-oophorectomy. She had heart surgery when she was 5 years of age. ALLERGIES: She is allergic to prednisone and lisinopril. SOCIAL HISTORY: She is not a smoker. She denies any use of alcohol or illicit drugs. She lives at home with her family. REVIEW OF SYSTEMS: She denies any chest pain, shortness of breath, cough, sputum, or wheezing. She does admit to some abdominal/pelvic pain mainly on the left lower side. She denies any nausea, vomiting, diarrhea, constipation, melena, or hematochezia. She does admit to some vaginal bleeding. She denies any headache, numbness, unsteady gait, weakness, neck or back pain, joint pain, skin rash or swelling, hives, hay fever, or swollen glands. Further review of systems is negative. PHYSICAL EXAMINATION: Vital signs: Temperature is 97.2, pulse 82, respirations 16, blood pressure 142/102, and pulse oximetry 98%. The patient is alert and oriented x3. She presently appears in no acute distress. She is pleasant and cooperative. HEENT: Page 1 of 2 ASTRID CUONG Emergency Room Report Head appears atraumatic. Pupils are equal and reactive to light. Red reflexes are intact bilaterally. Extraocular muscles are intact. No conjunctival injection. No scleral icterus or lid edema. Nose exhibits no rhinorrhea or epistaxis. Mouth: Mucous membranes are moist. No pharyngeal erythema. Uvula is midline and elevates. Neck is supple. Trachea is midline. No JVD or lymphadenopathy. No posterior cervical tenderness. No nuchal rigidity. Lungs are clear to auscultation in all lung lucero. No adventitious sounds are noted. No accessory muscle use. CV: Heart rate and rhythm are regular without murmur. Abdomen is soft with some mild left lower quadrant tenderness on palpation. Bowel sounds are present x4 quadrants and normoactive. No guarding or rigidity. No rebound. No palpable abdominal masses. No hepatosplenomegaly. No distention. Back exhibits no midline or paraspinal region tenderness. No increased paraspinal muscle rigidity. Negative Gustavo's sign. Extremities: No edema or cyanosis. Peripheral pulses are intact. No motor or sensory deficits are noted. Hand pathology assistant are strong and symmetric. Skin is warm and dry. No diaphoresis or rash. Neurologic examination shows the patient to be alert and oriented x4. No motor or sensory deficits are noted. Hand pathology assistant are strong and symmetric. Normal speech. The patient does not appear pale. EMERGENCY DEPARTMENT COURSE AND TREATMENT: I did look back on the reports. The patient had her ultrasound and was seen here on December 05, 2017. I had seen the patient, and on my report the apparent wet read done that night by the night radiologist showed the left ovary to be unremarkable. The right ovary was not well seen because it is not there. Then, the next day when our radiologist over-read the CT scan, she noted numerous cystic lesions on the left ovary, one of which appears to have a mural nodular component. It measured 2.5 x 4.7 x 4.9 cm. The report said the appearance was worrisome for neoplasm, and they did recommend a dedicated pelvic ultrasound for further characterization. The patient states that Dr. Figueroa did call her the next day and advised her of the cystic lesions on the left ovary and to follow up with Laurie Patiño to get an ultrasound. She states that she sees Dr. Cisneros, and they told her that she can get the ultrasound done through him as well. She has not gotten the ultrasound done as of yet, but she is scheduled to see Dr. Cisneros this coming Tuesday, which will be June 14, 2018. I do have ultrasound coming in for another patient here meagan, so I am just going to go ahead and get the dedicated pelvic ultrasound now. We will get some screening bloodwork, and then I will discuss the case with Dr. Cisneros, her ELECTRONICS INSTRUCTOR. Dictated By: Ese Virgen DO 06/11/18 20:59 JOB #: [id number] Transcribed By: carmela 06/12/18 04:22 Electronically signed by: E-Sign: Dr. Ese Virgen D.O. 06/13/18 03:21 Page 2 of 2 ASTRIDCUONG Emergency Room Report US PELVIC Observed: 06/11/2018 Status: F Source: [facility] 10:13 PM [place] [address] Patient: CUONG RESENDIZ Phone#: : 1965 Age: 53 Gender: F Pt. Type: ER Account: [id number] Location: [facility] Ordering: ESE VIRGEN Exam Date: 06/11/2018/21:36 Family Phys: SONA PATIÑO Charge Code: [id number] Physician: GRAEME CISNEROS Robertson Order #: [id number] DLP Dose#: PROCEDURE: PELVIC ULTRASOUND, TRANSABDOMINAL ENDOVAGINAL COMPARISON: None. INDICATIONS: Vaginal bleeding TECHNIQUE: Pelvic ultrasound using transabdominal and endovaginal technique. FINDINGS: UTERUS: Size is 11.1 x 5.0 x 5.9 cm with unremarkable appearance. Endometrial thickness is 11 mm. cystic foci at the cervix are present consistent with subcentimeter nabothian cysts. ADNEXAE: Normal bilateral appearance with no significant masses. Right ovary is absent. Left ovary is 3.6 x 2.5 x 4.1 cm. A 3 cm left ovarian cyst is present. CUL-DE-SAC: Normal. No fluid or mass. OTHER: Negative. CONCLUSION: 1. Multiple nabothian cysts. 2. 3.0 cm left ovarian cyst. Dictated by: Elaine Barriga MD on 06/12/2018 at 9:17 Approved by: Elaine Barriga MD on 06/12/2018 at 9:17 US PELVIC ENDO Observed: 06/11/2018 Status: F Source: [facility] [place] VAGINAL 10:12 PM [facility] REPOSITORY [place] [address] Patient: CUONG RESENDIZ Phone#: : 1965 Age: 53 Gender: F Pt. Type: ER Account: [id number] Location: 2 Ordering: ESE VIRGEN Exam Date: 06/11/2018/21:36 Family Phys: SONA PATIÑO Charge Code: [id number] Physician: GRAEME CISNEROS Robertson Order #: [id number] DLP Dose#: PROCEDURE: PELVIC ULTRASOUND, TRANSABDOMINAL ENDOVAGINAL COMPARISON: None. INDICATIONS: Vaginal bleeding TECHNIQUE: Pelvic ultrasound using transabdominal and endovaginal technique. FINDINGS: UTERUS: Size is 11.1 x 5.0 x 5.9 cm with unremarkable appearance. Endometrial thickness is 11 mm. cystic foci at the cervix are present consistent with subcentimeter nabothian cysts. ADNEXAE: Normal bilateral appearance with no significant masses. Right ovary is absent. Left ovary is 3.6 x 2.5 x 4.1 cm. A 3 cm left ovarian cyst is present. CUL-DE-SAC: Normal. No fluid or mass. OTHER: Negative. CONCLUSION: 1. Multiple nabothian cysts. 2. 3.0 cm left ovarian cyst. Dictated by: Elaine Barriga MD on 06/12/2018 at 9:17 Approved by: Elaine Barriga MD on 06/12/2018 at 9:17 CBC Collected: 06/11/2018 Status: F Source: [place] [place] 9:05 PM [facility] REPOSITORY TYPE CODE TESTS RESULT OUT OF RANGE REFERENCE UNITS LAB CBC(LOINC) CBC Result Comment: CBC-COMPLETE BLOOD COUNT LAB WBC(LOINC) 4.5 - 10.8 x 10EE3/UL WBC 8.0 LAB RBC(LOINC) 4.10 - x 10EE6/UL 5.30 RBC Low 4.04 LAB HEMOGLOBIN(LOINC) 12.0 - g/dl 16.0 Low HEMOGLOBIN 11.6 LAB HEMATOCRIT(LOINC) 34.0 - % 46.0 HEMATOCRIT 34.9 LAB MCV(LOINC) 80 - 99 fl MCV 86 LAB MCH(LOINC) 27 - 33 pg MCH 29 LAB MCHC(LOINC) 32 - 36 X10 3 MCHC 33 LAB RDW/CV(LOINC) 12.0 - % 15.6 RDW/CV 15.1 LAB PLATELET(LOINC) 150 - 450 x10EE3/UL PLATELET 340 LAB MPV(LOINC) 6.6 - 10.5 fl MPV 8.1 Result Comment: AUTOMATED DIFFERENTIAL LAB NEUT %(LOINC) 46.0 - 76.0 % NEUT % 59.4 LAB LYMPH %(LOINC) 20.0 - 45.0 % LYMPH % 25.1 LAB MONOS %(LOINC) 0.0 - 10.0 % MONOS % High 11.5 LAB EO %(LOINC) 0.0 - 7.0 % EO % 2.9 LAB BASO %(LOINC) 0.0 - 2.0 % BASO % 1.1 LAB Lymph #(LOINC) 0.80 - 2.80 x10EE3/U L Lymph # 2.00 LAB Neut #(LOINC) 1.50 - 7.10 x10EE3/U L Neut # 4.80 LAB Owsley #(LOINC) 0.20 - 1.00 x10EE3/U L Owsley # 0.90 LAB EO #(LOINC) 0.00 - 0.50 x10EE3/U L EO # 0.20 LAB Baso #(LOINC) 0.00 - 0.10 x10EE3/U L Baso # 0.10 LAB MANUAL DIFF(LOINC) MANUAL DIFF N/A LAB MORPHOLOGY(LOINC ) MORPHOLOGY N/A Result Comment: {CD] Performed By: #### [id number] #### [facility],[address] [place] [address] CMP WITH EGFR Collected: 06/11/2018 Status: F Source: [facility] 9:05 PM [facility] REPOSITORY TYPE CODE TESTS RESULT OUT OF RANGE REFERENCE UNITS LAB CMP with eGFR(LOINC) CMP with eGFR Result Comment: COMPREHENSIVE METABOLIC PANEL LAB SODIUM(LOINC) 136 - 145 mmol/l SODIUM Low 134 LAB POTASSIUM(LOINC) 3.5 - 5.1 mmol/L POTASSIUM 3.8 LAB CHLORIDE(LOINC) 98 - 107 mmol/L CHLORIDE 102 LAB CO2(LOINC) 21.0 - mmol/L 31.0 CO2 26.1 LAB GLUCOSE(LOINC) 74 - 106 mg/dl GLUCOSE High 111 LAB BUN(LOINC) 6 - 20 mg/dl BUN High 22 LAB CREATININE(LOINC) 0.6 - 1.2 mg/dl High CREATININE 1.3 LAB AST/SGOT(LOINC) 13 - 39 U/L AST/SGOT 34 LAB ALK PHOS(LOINC) 38 - 126 U/L ALK PHOS High 132 LAB CALCIUM(LOINC) 8.6 - mg/dl 10.2 CALCIUM 8.9 LAB TOTAL 6.4 - 8.3 g/dl PROTEIN(LOINC) TOTAL PROTEIN 7.7 LAB ALBUMIN(LOINC) 3.4 - 4.8 g/dL ALBUMIN 3.9 LAB GLOBULIN(LOINC) 1.5 - 3.8 G/DL GLOBULIN 3.8 LAB A/G RATIO(LOINC) 0.9 - 1.6 A/G RATIO 1.0 LAB TOTAL BILI(LOINC) 0.0 - 1.5 mg/dl TOTAL BILI 0.2 LAB B/C RATIO(LOINC) 0 - 30 ratio B/C RATIO 17 LAB ALT/SGPT(LOINC) 8 - 35 U/L ALT/SGPT 33 LAB ANION GAP(LOINC) 10 - 20 mmol/L ANION GAP 10 LAB AGE(LOINC) years AGE 53 LAB eGFR(LOINC) 60 - 999 ML/MINUTE eGFR Low 43 LAB eGFR(AA)(LOINC) 60 - 999 ML/MINUTE eGFR(AA) Low 52 Result Comment: ACCORDING TO THE NATIONAL KIDNEY DISEASE EDUCATION PROGRAM(NKDE), A NORMAL eGFR IS A VALUE GREATER THAN OR EQUAL TO 60 ML/MIN/1.73 SQ METERS. CHRONIC KIDNEY DISEASE: <60mL/MIN/1.73 SQ METERS KIDNEY FAILURE: <15mL/MIN/1.73 SQ METERS THIS TEST SHOULD ONLY BE USED FOR PATIENTS 18 YEARS OF AGE AND OLDER. Performed By: #### [id number] #### [facility],[address] [place], [place] [id number] URINALYSIS WITH Collected: 06/11/2018 Status: F Source: [facility] MICROSCOPY 8:55 PM [facility] REPOSITORY TYPE CODE TESTS RESULT OUT OF REFERENCE UNITS RANGE LAB URINALYSIS WITH MICROSCOPY(LOIN C) URINALYSIS WITH MICROSCOPY Result Comment: URINALYSIS LAB Specimen Type(LOINC) Specimen Type UNSPECIFIED LAB Color(LOINC) NORMAL: YELLOW Color p.yel LAB Clarity(LOINC) NORMAL: CLEAR clear Clarity LAB ph(LOINC) NORMAL: 5.0-8.0 ph 5 LAB Protein(LOINC) NORMAL: NEGATIVE 30 Abnormal Protein LAB Glucose(LOINC) NORMAL: NORMAL NORM Glucose LAB Ketone(LOINC) NORMAL: NEGATIVE NEG Ketone LAB Bilirubin(LOINC) NORMAL: NEGATIVE NEG Bilirubin LAB Blood(LOINC) NORMAL: NEGATIVE Blood 250 Abnormal LAB Urobilinog(LOINC NORMAL: ) NORMAL NORM Urobilinog LAB Sp NORMAL: [place](LOINC) 1.010-1.030 Sp 1.010 [place] LAB Nitrite(LOINC) NORMAL: NEGATIVE NEG Nitrite LAB Leukocytes(LOINC NORMAL: ) NEGATIVE 25 Abnormal Leukocytes Result Comment: URINE MICROSCOPIC LAB Wbc(LOINC) 0-5 / hpf Wbc 1-5 LAB Rbc(LOINC) 0-3 / hpf Rbc TNTC LAB Casts(LOINC) Casts NONE LAB Crystals(LOINC) Crystals NONE LAB Amorphous(LOINC) Amorphous NONE LAB Bacteria(LOINC) Bacteria 1+ LAB Epi Cells(LOINC) Epi Cells OCC LAB Mucous(LOINC) Mucous NONE LAB Yeast(LOINC) Yeast NONE Performed By: #### [id number] #### [facility],[address] [place], [place] [id number] EMERGENCY REPORT Observed: 12/06/2017 Status: F Source: [facility] 3:59 AM [facility] EMERGENCY ROOM REPORT NAME ACCOUNT SEX AGE ADMIT DISCHARGE PT MED. RECORD# NUMBER DATE DATE TYPE CUONG RESENDIZ [id number] F 52 12/04/17 12/05/17 3 [id number] ROOM: ER DATE OF : 1965 DICTATING PHYSICIAN: Ese Virgen ADDENDUM: DIAGNOSTIC DATA: CT of the abdomen and pelvis with IV contrast showed no evidence of bowel obstruction, hernia, free air, or free fluid. Moderate amount of stool. Correlate for constipation. No evidence of appendicitis. Appendix not well seen. No hydronephrosis. Bladder, uterus, and left ovary are unremarkable. Right ovary not well seen. No acute inflammatory process. Status post cholecystectomy. Visualized lung bases are clear. The patient told me that she had her right ovary removed in the past. Her laboratory work today showed a white count of 12.0 with a hemoglobin of 8.5, hematocrit 27.1, platelet count is 423,000. I did have a CBC for comparison from May 08, 2017, which showed a hemoglobin of 8.2 at that time, so her anemia is chronic. Her lipase was mildly elevated at 79, but the CAT scan did not show any pancreatic inflammation, so I did not feel this represented pancreatitis. Her CRP was only 0.20. Sodium 136, potassium 4.6, chloride 105, Co2 25.4, BUN 30, creatinine 1.2, glucose 101. AST 40, ALT 41, alkaline phosphatase 127. Total bilirubin was 0.2. Anion gap is 10. Urinalysis showed no white cells per high-powered field, 1+ bacteria, but many epithelials. I felt the urine represented a contaminated specimen and not a UTI. EKG at 0003 hours showed a normal sinus rhythm with a rate of 65 beats per minute. No acute ST segment changes were noted. [place] is approximately 0 degrees. EMERGENCY DEPARTMENT COURSE AND TREATMENT: The patient was placed on Bentyl 20 mg 1 p.o. every 6 hours as needed for abdominal pain, dispensed #30 with no refill and Zofran ODT 4 mg 1 every 8 hours as needed for nausea and vomiting dispensed # 15 with no refill. Nursing notes reviewed. DIAGNOSIS: Abdominal pain. PLAN/DISPOSITION: The patient is to rest without any heavy lifting or other exertional activities. I encouraged fluids and to take medication as prescribed. If her symptoms become worse or any other problems develop, she is to return here to the emergency department; otherwise, she is to follow up with her primary care physician at [facility] in 3 to 5 days for reevaluation. The patient was discharged in improve, stable condition. D: Ese Virgen DO TD: 12/05/17 12:17 Page 1 of 2 CUONG RESENDIZ Emergency Room Report JOB #: [id number] Transcribed by: am Electronically signed by: E-Sign: Dr. Ese Virgen D.O. 12/06/17 03:59 Page 2 of 2 CUONG RESENDIZ Emergency Room Report EMERGENCY REPORT Observed: 12/06/2017 Status: F Source: [facility] 3:58 AM [facility] EMERGENCY ROOM REPORT NAME ACCOUNT SEX AGE ADMIT DISCHARGE PT MED. RECORD# NUMBER DATE DATE TYPE CUONG RESENDIZ [id number] F 52 12/04/17 12/05/17 3 [id number] ROOM: ER DATE OF : 1965 DICTATING PHYSICIAN: Ese Virgen HISTORY OF PRESENT ILLNESS: This is a 52-year-old white female complaining of right lower quadrant abdominal pain that started suddenly at 9:30 p.m. tonight. The pain does radiate through to her right lower back. She presently rates the pain as an 8 on a severity scale of 1 to 10. She describes the pain as sharp in nature. The pain is worse with movement and the car hitting bumps on the ride in here. She states she does not have her right ovary, and she has also had her gallbladder removed. She does admit to some nausea but denies any vomiting. PAST MEDICAL HISTORY: Hypertension. 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 Dr. Jose Ramírez is her transit bus driver, and he has been watching it. PAST SURGICAL HISTORY: Cholecystectomy, hernia repair x3, and tubal ligation. ALLERGIES: No known drug allergies. SOCIAL HISTORY: The patient does not smoke or drink alcohol. She lives at home with her family. REVIEW OF SYSTEMS: Positive for abdominal pain and low back pain. She denies any chest pain, shortness of breath, cough, sputum, wheezing, nausea, vomiting, diarrhea, constipation, melena, hematochezia, headache, numbness, unsteady gait, weakness, neck or back pain, joint pain, skin rash or swelling, hives, or swollen glands. Further review of systems is negative. PHYSICAL EXAMINATION: On physical examination, the patient is alert and oriented x3. She appears in moderate distress secondary to right lower quadrant abdominal pain, but she is pleasant and cooperative. HEENT: Head appears atraumatic. Pupils are equal and reactive to light. Red reflexes are intact bilaterally. Extraocular muscles are intact. No conjunctival injection. No scleral icterus or lid edema. Nose exhibits no rhinorrhea or epistaxis. Mouth: Mucous membranes are moist. No pharyngeal erythema. Uvula is midline and elevates. Neck is supple. Trachea is midline. No JVD or lymphadenopathy. No posterior cervical tenderness. No nuchal rigidity. Lungs are clear to auscultation in all lung lucero. No adventitious sounds are noted. Cardiovascular: Heart rate and rhythm are regular. No murmur is noted. Abdomen is soft and obese with moderate tenderness to palpation in the right lower quadrant. There is some voluntary Page 1 of 2 CUONG RESENDIZ Emergency Room Report guarding but no involuntary guarding. No rebound. Bowel sounds are present x4 quadrants but somewhat hypoactive. No abdominal distention. Back exhibits no midline or paraspinal region tenderness. No increased paraspinal muscle rigidity. Negative Gustavo's sign. Extremities: No edema or cyanosis. Peripheral pulses are intact. No motor or sensory deficits are noted. Hand pathology assistant are strong and symmetric. Neurologic examination shows the patient to be alert and oriented x4. No motor or sensory deficits are noted. Normal speech. Skin is warm and dry. No diaphoresis or rash. The patient is pleasant and cooperative with a normal affect. EMERGENCY DEPARTMENT COURSE AND TREATMENT: Presently, we will get a CT of the abdomen and pelvis with some bloodwork and a urinalysis and then reevaluate. D: Ese Virgen DO TD: 12/05/17 10:38 JOB #: [id number] Transcribed by: carmela Electronically signed by: E-Sign: Dr. Ese Virgen D.O. 12/06/17 03:58 Page 2 of 2 CUONG RESENDIZ Emergency Room Report CT ABDOMEN/PELVIS W Observed: 12/05/2017 Status: F Source: [facility] 1:00 AM [place] [address] Patient: CUONG RESENDIZ Phone#: : 1965 Age: 52 Gender: F Pt. Type: ER Account: [id number] Location: 052 Ordering: SEE VIRGEN Exam Date: 12/05/2017/0:46 Family Phys: [facility] Charge Code: [id number] Physician: Robertson Order #: [id number] DLP Dose#: 30.20 PROCEDURE: CT ABDOMEN/PELVIS WITH CONTRAST COMPARISON: Prior Exams, CT, ABDOMEN W CON, 12/28/2007, 22:47. INDICATIONS: RLQ Pain TECHNIQUE: After obtaining the patient's consent, CT images were created with non-ionic intravenous contrast material. All CT scans at this facility use dose modulation, iterative reconstruction, and/or weight based dosing when appropriate to reduce radiation dose to as low as reasonably achievable. IV CONTRAST: Omnipaque 350,80ml TOTAL DOSE: 30.20 CTDIvol(mGy) FINDINGS: LIVER: Normal. No enlargement, atrophy, abnormal density, or significant focal lesion. BILIARY: Surgical clips in the gallbladder fossa, gallbladder is absent. PANCREAS: Normal. No lesion, fluid collection, ductal dilatation, or atrophy. SPLEEN: Normal. No enlargement or focal lesion. KIDNEYS: Normal. No mass, obstruction, or calcification. ADRENALS: Normal. No mass or enlargement. AORTA/VASCULAR: Normal. No aneurysm or dissection. RETROPERITONEUM: Normal. No mass or adenopathy. BOWEL/MESENTERY: Moderate to large degree of stool throughout the colon, consistent with constipation. No bowel obstruction or dilatation. ABDOMINAL WALL: Small fat containing left inguinal hernia. URINARY BLADDER: Urinary bladder is decompressed. PELVIC NODES: Normal. No adenopathy. Continued Report - Page 2 of 2 Patient: CUONG RESENDIZ Phone#: : 1965 Age: 52 Gender: F Pt. Type: ER Account: [id number] Location: 052 Ordering: ESE VIRGEN Exam Date: 12/05/2017/0:46 Family Phys: [facility] Charge Code: [id number] Physician: Robertson Order #: [id number] DLP Dose#: 30.20 PELVIC ORGANS: The uterus is present. There is numerous cystic lesions in the left ovary one of which appears to have a mural nodular component. The area measures 2.5 x 4.7 x 4.9 cm. Surgical suture material is present in the region the right ovary. BONES: Disc height loss vacuum disc phenomenon at L5-S1 with associated endplate changes LUNG BASES: Normal. No visible pulmonary or pleural disease. OTHER: Negative. CONCLUSION: 1. No appreciable acute intra-abdominal or pelvic abnormality. 2. Multicystic left ovarian lesion. Recommend dedicated pelvic ultrasound for further characterization. The appearance is worrisome for neoplasm. 3. Constipation. Dictated by: Dina Queen MD on 12/05/2017 at 11:28 Approved by: Dina Queen MD on 12/05/2017 at 11:34 LIPASE Collected: 12/05/2017 Status: F Source: [facility] 12:10 AM [facility] REPOSITORY TYPE CODE TESTS RESULT OUT OF REFERENCE UNITS RANGE LAB LIPASE(LOIN 18.0 - 51.0 U/L C) High LIPASE 79.0 Performed By: #### [id number] #### [facility],[address] [place] [address] CMP WITH EGFR Collected: 12/05/2017 Status: F Source: [facility] 12:10 [facility] REPOSITORY TYPE CODE TESTS RESULT OUT OF RANGE REFERENCE UNITS LAB CMP with eGFR(LOINC) CMP with eGFR Result Comment: COMPREHENSIVE METABOLIC PANEL LAB SODIUM(LOINC) 136 - 145 mmol/l SODIUM 136 LAB POTASSIUM(LOINC) 3.5 - 5.1 mmol/L POTASSIUM 4.6 LAB CHLORIDE(LOINC) 98 - 107 mmol/L CHLORIDE 105 LAB CO2(LOINC) 21.0 - mmol/L 31.0 CO2 25.4 LAB GLUCOSE(LOINC) 74 - 106 mg/dl GLUCOSE 101 LAB BUN(LOINC) 6 - 20 mg/dl BUN High 30 LAB CREATININE(LOINC) 0.6 - 1.2 mg/dl CREATININE 1.2 LAB AST/SGOT(LOINC) 13 - 39 U/L AST/SGOT High 40 LAB ALK PHOS(LOINC) 38 - 126 U/L ALK PHOS High 127 LAB CALCIUM(LOINC) 8.6 - mg/dl 10.2 CALCIUM 9.0 LAB TOTAL 6.4 - 8.3 g/dl PROTEIN(LOINC) TOTAL PROTEIN 7.2 LAB ALBUMIN(LOINC) 3.4 - 4.8 g/dL ALBUMIN 3.7 LAB GLOBULIN(LOINC) 1.5 - 3.8 G/DL GLOBULIN 3.5 LAB A/G RATIO(LOINC) 0.9 - 1.6 A/G RATIO 1.1 LAB TOTAL BILI(LOINC) 0.0 - 1.5 mg/dl TOTAL BILI 0.2 LAB B/C RATIO(LOINC) 0 - 30 ratio B/C RATIO 25 LAB ALT/SGPT(LOINC) 8 - 35 U/L ALT/SGPT High 41 LAB ANION GAP(LOINC) 10 - 20 mmol/L ANION GAP 10 LAB AGE(LOINC) years AGE 52 LAB eGFR(LOINC) 60 - 999 ML/MINUTE eGFR Low 48 LAB eGFR(AA)(LOINC) 60 - 999 ML/MINUTE eGFR(AA) Low 58 Result Comment: ACCORDING TO THE NATIONAL KIDNEY DISEASE EDUCATION PROGRAM(NKDE), A NORMAL eGFR IS A VALUE GREATER THAN OR EQUAL TO 60 ML/MIN/1.73 SQ METERS. CHRONIC KIDNEY DISEASE: <60mL/MIN/1.73 SQ METERS KIDNEY FAILURE: <15mL/MIN/1.73 SQ METERS THIS TEST SHOULD ONLY BE USED FOR PATIENTS 18 YEARS OF AGE AND OLDER. Performed By: #### [id number] #### [place] [address] C-REACTIVE PROTEIN Collected: 12/05/2017 Status: F Source: [facility] 12:10 [facility] REPOSITORY TYPE CODE TESTS RESULT OUT OF RANGE REFERENCE UNITS LAB CRP(LOINC) 0.00 - 1.00 mg/dl CRP 0.20 Performed By: #### [id number] #### [place] [address] CBC Collected: 12/05/2017 Status: F Source: [facility] 12:10 [facility] REPOSITORY TYPE CODE TESTS RESULT OUT OF RANGE REFERENCE UNITS LAB CBC(LOINC) CBC Result Comment: CBC-COMPLETE BLOOD COUNT LAB WBC(LOINC) 4.5 - 10.8 x 10EE3/UL WBC High 12.0 LAB RBC(LOINC) 4.10 - x 10EE6/UL 5.30 RBC Low 3.93 LAB HEMOGLOBIN(LOINC 12.0 - g/dl ) 16.0 Low HEMOGLOBIN 8.5 LAB HEMATOCRIT(LOINC 34.0 - % ) 46.0 Low HEMATOCRIT 27.1 LAB MCV(LOINC) 80 - 99 fl MCV Low 69 LAB MCH(LOINC) 27 - 33 pg MCH Low 22 LAB MCHC(LOINC) 32 - 36 X10 3 MCHC 32 LAB RDW/CV(LOINC) 12.0 - % 15.6 RDW/CV High 19.2 LAB PLATELET(LOINC) 150 - 450 x10EE3/UL PLATELET 423 LAB MPV(LOINC) 6.6 - 10.5 fl MPV 7.9 Result Comment: AUTOMATED DIFFERENTIAL LAB NEUT %(LOINC) 46.0 - % 76.0 NEUT % 73.7 LAB LYMPH %(LOINC) 20.0 - % Low 45.0 LYMPH % 13.8 LAB MONOS %(LOINC) 0.0 - 10.0 % MONOS % 9.7 LAB EO %(LOINC) 0.0 - 7.0 % EO % 1.6 LAB BASO %(LOINC) 0.0 - 2.0 % BASO % 1.2 LAB Lymph #(LOINC) 0.80 - x10EE3/ 2.80 UL Lymph # 1.70 LAB Neut #(LOINC) 1.50 - x10EE3/ 7.10 UL Neut # 8.90 High LAB Owsley #(LOINC) 0.20 - x10EE3/ 1.00 UL Owsley # 1.20 High LAB EO #(LOINC) 0.00 - x10EE3/ 0.50 UL EO # 0.20 LAB Baso #(LOINC) 0.00 - x10EE3/ 0.10 UL Baso # 0.10 LAB MANUAL DIFF(LOINC) MANUAL DIFF REVIEWED LAB MORPHOLOGY(LOIN C) MORPHOLOGY REVIEWED Result Comment: {CD] Performed By: #### [id number] #### [facility],[address] [place], [place] [id number] URINALYSIS Collected: 12/04/2017 Status: F Source: [facility] 11:45 PM [facility] REPOSITORY TYPE CODE TESTS RESULT OUT OF REFERENCE UNITS RANGE LAB URINALYSIS (LOINC) URINALYSIS Result Comment: URINALYSIS LAB Specimen Type(LOINC) Specimen Type UNSPECIFIED LAB Color(LOINC) NORMAL: YELLOW Color yellow LAB Clarity(LOINC) NORMAL: CLEAR Clarity clear LAB ph(LOINC) NORMAL: 5.0-8.0 ph 6 LAB Protein(LOINC) NORMAL: NEGATIVE Protein NEG LAB Glucose(LOINC) NORMAL: NORMAL Glucose NORM LAB Ketone(LOINC) NORMAL: NEGATIVE Ketone NEG LAB Bilirubin(LOINC) NORMAL: NEGATIVE NEG Bilirubin LAB Blood(LOINC) NORMAL: NEGATIVE Blood 10 Abnormal LAB Urobilinog(LOINC NORMAL: ) NORMAL NORM Urobilinog LAB Sp NORMAL: [place](LOINC) 1.010-1.030 Sp 1.015 [place]ick LAB Nitrite(LOINC) NORMAL: NEGATIVE Nitrite NEG LAB Leukocytes(LOINC NORMAL: ) NEGATIVE NEG Leukocytes LAB Microscopic(LOIN C) SEE Microscopic BELOW Result Comment: MICROSCOPIC LAB Wbc(LOINC) 0-5/hpf Wbc NONE LAB Rbc(LOINC) 0-3/hpf Rbc 0-5 LAB Casts(INC) Casts NONE LAB Crystals(LOINC) Crystals NONE LAB Amorphous(INC) Amorphous NONE LAB Bacteria(INC) Bacteria 1+ LAB Epi Cells(INC) Epi Cells MANY LAB Mucous(LOINC) Mucous NONE LAB Yeast(INC) Yeast NONE Performed By: #### [id number] #### [facility],[address] [place] [address] CT ANGIOGRAPHY CHEST Observed: 11/16/2017 Status: F Source: [facility] 9:54 AM [place] [address] Patient: CUONG RESENDIZ Phone#: : 1965 Age: 52 Gender: F Pt. Type: Out Account: [id number] Location: [facility] Ordering: JOSE RAMÍREZ Exam Date: 11/16/2017/9:30 Family Phys: SONA RANJIT Charge Code: [id number] Physician: Robertson Order #: [id number] DLP Dose#: 18.60 PROCEDURE: CT ANGIOGRAPHY CHEST WITH CONTRAST COMPARISON: [facility], CT, ANGIOGRAPHY CHEST, 12/08/2016, 15:05. INDICATIONS: Thoracic aorta TECHNIQUE: After obtaining the patient's consent, CT images were obtained with non-ionic intravenous contrast material. Multi-planar images were created to optimize visualization of vascular anatomy with MPR/MIPS and 3D imaging. All CT scans at this facility use dose modulation, iterative reconstruction, and/or weight based dosing when appropriate to reduce radiation dose to as low as reasonably achievable. IV CONTRAST: Omnipaque 350,80ml TOTAL DOSE: 18.60 CTDIvol(mGy) FINDINGS: VASCULATURE: Normal. No visible pulmonary arterial thrombus or attenuation. AORTA: Evaluation the aortic root is somewhat limited due to cardiac motion. Density at the aortic leaflets is similar to prior. Aortic measurements are as follows: Aortic sinus of Valsalva: 3.1 x 3.6 cm Sinotubular junction: 3.1 x 2.9 cm Mid ascending aorta: 4.5 x 4.3 cm High ascending aorta: 3.5 x 3.5 cm Aortic arch: 3.0 x 2.9 cm Mid descending aorta: 2.5 x 2.3 cm LUNGS: Normal. No visible pulmonary disease. ANTONY: Normal. No mass or adenopathy. MEDIASTINUM: Normal. No mass or adenopathy. CARDIAC: Normal. No enlargement, pericardial thickening, or significant calcification. PLEURA: Normal. No mass or effusion. Continued Report - Page 2 of 2 Patient: CUONG RESENDIZ Phone#: : 1965 Age: 52 Gender: F Pt. Type: Out Account: [id number] Location: 052 Ordering: JOSE RAMÍREZ Exam Date: 11/16/2017/9:30 Family Phys: SONA [place] Charge Code: [id number] Physician: Robertson Order #: [id number] DLP Dose#: 18.60 CHEST WALL: Normal. No mass or axillary adenopathy. LIMITED ABDOMEN: Moderate degree of stool in the visualized portion of the abdomen. There are surgical clips in the gallbladder fossa. BONES: There are mild degenerative changes of the thoracic spine. OTHER: Negative. CONCLUSION: 1. Ascending aortic aneurysm. Given the difference in measuring technique no significant change. Dictated by: Dina Queen MD on 11/16/2017 at 17:22 Approved by: Dina Queen MD on 11/16/2017 at 17:22 BMP WITH EGFR Collected: 11/08/2017 Status: F Source: [facility] 1:58 PM [facility] REPOSITORY TYPE CODE TESTS RESULT OUT OF RANGE REFERENCE UNITS LAB BMP with eGFR(LOINC) BMP with eGFR Result Comment: BASIC METABOLIC PANEL LAB SODIUM(LOINC) 136 - 145 mmol/l SODIUM 137 LAB POTASSIUM(LOINC) 3.5 - 5.1 mmol/L POTASSIUM 4.7 LAB CHLORIDE(LOINC) 98 - 107 mmol/L CHLORIDE 104 LAB CO2(LOINC) 21.0 - mmol/L 31.0 CO2 24.7 LAB GLUCOSE(LOINC) 74 - 106 mg/dl GLUCOSE 90 LAB BUN(LOINC) 6 - 20 mg/dl BUN High 22 LAB CREATININE(LOINC) 0.6 - 1.2 mg/dl CREATININE 1.2 LAB CALCIUM(LOINC) 8.6 - mg/dl 10.2 CALCIUM 9.1 LAB ANION GAP(LOINC) 10 - 20 mmol/L ANION GAP 13 LAB AGE(LOINC) years AGE 52 LAB eGFR(LOINC) 60 - 999 ML/MINUTE eGFR Low 48 LAB eGFR(AA)(LOINC) 60 - 999 ML/MINUTE eGFR(AA) Low 58 Result Comment: ACCORDING TO THE NATIONAL KIDNEY DISEASE EDUCATION PROGRAM(NKDE), A NORMAL eGFR IS A VALUE GREATER THAN OR EQUAL TO 60 ML/MIN/1.73 SQ METERS. CHRONIC KIDNEY DISEASE: <60mL/MIN/1.73 SQ METERS KIDNEY FAILURE: <15mL/MIN/1.73 SQ METERS THIS TEST SHOULD ONLY BE USED FOR PATIENTS 18 YEARS OF AGE AND OLDER. Performed By: #### [id number] #### [facility],[address] [place] [address] ALLERGIES ALLERGIES DATE TYPE / CODE NAME / CODE REACTION SEVERITY SOURCE 07/27/2018 Drug lisinopril/F Other Unknown [facility] Allergy/4160 [id number]([facility] 51942(SNOMED NORM) Repository CT) 07/27/2018 Drug prednisone/F Other Unknown [facility] Allergy/4160 [id number]([facility] 83545(SNOMED NORM) Repository CT) Drug PREDNISONE/0 Moderate Gurmeet Pomerene Allergy/4160 [id number](RXNO ([facility] 77746(SNOMED RM) Modifier) Repository CT) (Qualifier Value) Drug LISINOPRIL/0 Moderate Gurmeet Pomerene Allergy/4160 [id number](RXNO ([facility] 49295(SNOMED RM) Modifier) Repository CT) (Qualifier Value) ENCOUNTERS ENCOUNTERS ADMIT/DISCHARGE ACCOUNT ADMITTING ENCOUNTER LOCATION SOURCE NUMBER CLASS 08/10/2018/ [id number] Ambulatory [place] [address] [facility] ing:SDCRoom: Repository [id number] 07/10/2018 [id number] Ambulatory [place] [address] [facility] ing:WOBLAB Repository 06/21/2018/ [id number] JOSE RAMÍREZ [address] Repository 06/15/2018 [id number] Ambulatory Anal[place] [address] [facility] ing:LABSPEC Repository 06/11/2018/ [id number] ESE VIRGEN Emergency BuildinR Gurmeet Pomerene 8 DO oom: ERBed: A [facility] Repository 12/04/2017/ [id number] ESE VIRGEN Emergency BuildinR Gurmeet Pomerene 8 DO oom: ERBed: [facility] Repository 11/16/2017/ [id number] JOSE RAMÍREZ [address] Repository 11/08/2017/ [id number] JOSE RAMÍREZ [address] Repository PAYERS PAYERS ENCOUNTER GUARANTOR PAYER SUBSCRIBER SOURCE 08/10/2018 OWEN [id number] Primary OWEN BRENDAB: [place] EMORY Insurance:AULTCAREPoli [id number] [address]Dwr: [id number] Repository Date:0910-06-05[address] [address]IL: 08/10/2018 Secondary NOT GIVENUNK Analia Insurance:SELF PAY [facility] Number: Effective Repository Date:2018-07-20 07/10/2018 OWEN (JOHNATHAN) Primary OWEN (JOHNATHAN) Delhielmer [id number] JOAQUIN Insurance:CAREMalik [facility] [place] Number: [facility] [id number] [place]ository [place] [address]Rda: Date:5505-04-80[address] [place] [address] (YY) [phone]: 07/10/2018 Secondary NOT GIVENUNK Analia Insurance:SELF PAY [facility] Number: Effective Repository Date:2018-07-10 06/21/2018 CUONG LEEDOB: Primary CUONG LEEDOB: Gurmeet Cookmurphy Insurance:AULTCARE [id number] [facility], Number: [facility], [place]ository [place] [id number] [place] [id number]: Date:Plan Name:A2 () 06/15/2018 Ye [id number] Primary OWEN BRAD [place] Insurance:[facility] Number: [facility], [place] [id number] Repository [address]Ogp: (330) Date:1419-77-15[phone] () [address] [address]VD: 06/15/2018 Secondary NOT GIVENÁLVARO Analia Insurance:SELF PAY [facility] Number: Effective Repository Date:2018-06-15 06/11/2018 CUONG LEEDOB: Primary CUONG LEEDOB: Gurmeet Cookmurphy Insurance:AULTCARE [id number] [facility], Number: [facility], [place]ository [place] [id number] [place] [id number]: Date:Plan Name:A2 () 12/04/2017 CUONG LEEDOB: Primary CUONG LEEDOB: Gurmeet Cookmurphy Insurance:AULTCARE [id number] [facility], Number: [facility], [place]ository [place] [id number] [place] [id number]: Date:Plan Name:A2 () 11/16/2017 CUONG LEEDOB: Primary CUONG LEEDOB: Gurmeet Cookpreetine Insurance:AULTCARE [id number] [facility], Number: [facility], Repository [place] [id number] [place] [id number]: Date:Plan Name:A2 () 11/08/2017 CUONG AUGUSTIN: Primary CUONG AUGUSTIN: Gurmeet Rhodes [id number] [facility] [id number] [facility], Number: [facility], Repository [place] [id number] N[place] [id number]: Date:Plan Name:A2 ()
== END 2018-08-11 09:49 | disposition home or self-care (01) ==
LOC: SDC 05:18 → AC 05:18 → MS2 07:53
PROVIDERS: Family Provider Family Medicine; PCP Family Medicine; Referring Provider Obstetrics & Gynecology; Visit Provider Obstetrics & Gynecology
PROC: 0UT9FZZ Resection of Uterus, Via Natural or Artificial Opening With Percutaneous Endoscopic Assistance (ICD-10-PCS; CPT 58552; principal; 2018-08-10 07:05)
DX: N83.02 Follicular cyst of left ovary (principal); N80.0 Endometriosis of uterus; N80.1 Endometriosis of ovary; N83.8 Other noninflammatory disorders of ovary, fallopian tube and broad ligament; N72 Inflammatory disease of cervix uteri; N92.0 Excessive and frequent menstruation with regular cycle; K66.0 Peritoneal adhesions (postprocedural) (postinfection); R97.1 Elevated cancer antigen 125 [CA 125]; I10 Essential (primary) hypertension; Z79.899 Other long term (current) drug therapy; Z87.891 Personal history of nicotine dependence; Z83.3 Family history of diabetes mellitus
CPT/HCPCS: 58552; 36415; 80053; 82565; 82962; 85027; 85610; 85730; 86850; 86900; 88307; J7050; J7120; A4216; C1760; J2405